=== PATIENT | female | born 1965 | race Native Hawaiian/Other Pacific Islander ===

== ENCOUNTER → 2016-12-29 | Outpatient (CLI) | payer MEDICARE ==
--- NOTE | 2016-12-30 07:48 | MR ---
EXAMINATION TYPE: MR lumbar spine wo con DATE OF EXAM: 12/29/2016 1:05 PM COMPARISON: 03/12/2014 HISTORY: 51-year-old female with low back pain TECHNIQUE: Multiplanar, multisequence images of the lumbar spine were acquired. FINDINGS: Gentle dextroconvex curvature of the lumbar spine is not as pronounced as on prior study and may in p art be positional. There is a component of mild congenital spinal canal narrowing in the mid to lower lumbar spine with AP canal dimension 1.3 cm. Vertebral body heights are preserved and alignment is maintained. Conus medullaris is normal. Mild desiccation of the L4-L5 and L5-S1 intervertebral discs. No suspicious bone marrow replacement. Better seen on the current exam is ligamentum flavum thickening and minimal bulging disc at T11-T12 c ontributing to mild narrowing of the spinal canal likely related abutment of both the dorsal and vent ral cord. At T12-L1, no spinal canal or neuroforaminal stenosis. At L1-L2, no spinal canal or neuroforaminal stenosis. At L2-L3, no spinal canal and neuroforaminal stenosis. At L3-L4, no spinal canal or neuroforaminal stenosis. At L4-L5, mild diffuse bulging disc is redemonstrated. There is ligamentum flavum thickening and face t degenerative change. There is similar accentuation of the mild spinal canal stenosis with similar m ild bilateral neuroforaminal stenosis. At L5-S1, there is diffuse disc bulge with small posterior annular fissure redemonstrated, relatively similar prior with prominent epidural fat and facet degenerative change. Disc material closely appro aches the traversing right S1 nerve root, similar to prior exam. No spinal canal stenosis. No prevertebral or paravertebral soft tissue abnormality seen. IMPRESSION: 1. 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 The mild spinal canal stenosis i s accentuated at L4-L5 due to diffuse disc bulging, facet arthropathy, and prominent dorsal epidural fat. Mild bilateral neuroforaminal stenoses at this level are also unchanged. 2. At L5-S1, there is bulging disc with small posterior annular fissure. Disc material closely appro aches the traversing right S1 nerve root here, similar to prior. 3. Better seen on the current study is marked ligamentum flavum thickening at T11-T12 and bulging dis c. This mildly narrows the spinal canal and probably abuts both the dorsal and ventral cord. 4. A dextroconvex curvature of the lumbar spine is not as pronounced as on prior study and may in par t be positional.
== END | disposition home or self-care (01) ==
LOC: RADMRIMAIN 11:45
PROVIDERS: ATTEND Psychiatry & Neurology Neurology
DX: M48.06 Spinal stenosis, lumbar region (principal); M99.73 Connective tissue and disc stenosis of intervertebral foramina of lumbar region; M51.27 Other intervertebral disc displacement, lumbosacral region; M46.86 Other specified inflammatory spondylopathies, lumbar region
CPT/HCPCS: 72148

== ENCOUNTER → 2017-10-05 | Outpatient (CLI) | payer MEDICARE ==
--- NOTE | 2017-10-06 11:41 | MR ---
EXAMINATION TYPE: MR brain wo/w con DATE OF EXAM: 10/05/2017 COMPARISON: 03/12/2014 HISTORY: MS CONTRAST: Performed utilizing 8.5 mL intravenous Gadavist gadolinium contrast. TECHNIQUE: Multiplanar, multisequence imaging of the brain is performed on a 3.0 Lucina magnet. Demye linating disease protocol with additional Sagittal Flair sequence is performed. Study is performed wi thin 24 hours of arrival to the hospital. FINDINGS: T2 White Matter Lesions Present : Yes Approximate Number of Lesions: Multiple scattered, greater than 20 on each side. Locations Identified : Yes Size of Largest Lesion(s): 1. 0.9 x 0.7 x 0.7 cm. Location: Right frontal centrum semiovale semiovale. Sequence 501 Image 22 (a xial) and Sequence 601 Image 22 (sagittal). 2. 0.4 x 0.6 x 0.6 cm. Location: Left espino radiata Sequence 501 Image 19 (axial) and Sequence 601 Image 10 (sagittal). Enhancing Lesion(s) Present: No Change from Prior: Progressive number and size of lesions. Diffusion-weighted imaging is performed. No abnormal hyperintensity is present to suggest an acute i ntracranial infarct or acute ischemic change. Ventricles and sulci are appropriate for the patient age. There are no abnormal extra-axial fluid collections. The ventricular system and cisternal spaces are normal in size and appearance. The brain volume is age appropriate. The craniocervical junction abhishek ears within normal limits. The dural venous sinuses appear patent. No abnormal enhancement is present on post contrast images. . The visualized sinuses are clear. Visu alized orbits are unremarkable. IMPRESSION: 1. Increasing number and size of white matter changes can be compatible with progressive multiple sc lerosis.
== END | disposition home or self-care (01) ==
LOC: RADMRIMAIN 12:53
PROVIDERS: ATTEND Psychiatry & Neurology Neurology
DX: R90.82 White matter disease, unspecified (principal)
CPT/HCPCS: 70553; A9581

== ENCOUNTER → 2017-11-11 | Outpatient (CLI) | payer MEDICARE ==
[2017-11-11 14:33] LABS: Total Protein,CSF 57 mg/dL (12-60)
[2017-11-11 15:24] LABS: Appearance,CSF Clear; CSF Tube Number 4; Nucleated Cells, CSF 0 u/L (0-5); Red Blood Cell,CSF 0 u/L (0-10)
[2017-11-13 13:30] LABS: IgG - CSF 3.4 mg/dL (0.0 - 3.4); IgG/Albumin Index (CSF) 0.52 (0.00 - 0.77)
== END | disposition home or self-care (01) ==
LOC: LABWHC1 10:15
PROVIDERS: ATTEND Nurse Practitioner Acute Care
DX: R90.82 White matter disease, unspecified (principal)
CPT/HCPCS: 36415; 82040; 82042; 82784; 83873; 83916; 84157; 87476; 89050

== ENCOUNTER 2018-01-24 21:06 | Emergency (ER) | payer MEDICARE ==
[2018-01-24] MEDS ORDERED: SODIUM CHLORIDE 0.9% 1,000 ML IV STA (22:52)
[2018-01-24] MEDS ORDERED: LIDOCAINE 1%-EPI 1:100,000 30 ML VIAL SQ STA (22:54)
--- NOTE | 2018-01-24 22:56 | ED ---
Syncope HPI - General Chief Complaint: Syncope Stated Complaint: Head injury Time Seen by Provider: 01/24/18 22:32 Source: family Mode of arrival: wheelchair Limitations: no limitations - Related Data Home Medications Medication Instructions Recorded Confirmed ALPRAZolam [Xanax] 1 - 1.5 mg PO BID PRN 01/24/18 01/24/18 Cholecalciferol [Vitamin D3] 1,000 unit PO DAILY 01/24/18 01/24/18 Gabapentin [Neurontin] 300 mg PO TID 01/24/18 01/24/18 HYDROcodone/APAP 7.5-325MG [[place] 1 tab PO TID PRN 01/24/18 01/24/18 7.5-325] Ibuprofen 800 mg PO QID PRN 01/24/18 01/24/18 Simvastatin [Zocor] 10 mg PO HS 01/24/18 01/24/18 Topiramate [Topamax] 50 mg PO BID 01/24/18 01/24/18 Allergies Allergy/AdvReac Type Severity Reaction Status Date / Time morphine Allergy Unknown Verified 01/24/18 22:03 Penicillins Allergy Unknown Verified 01/24/18 22:03 Review of Systems ROS Statement: Those systems with pertinent positive or pertinent negative responses have been documented in the HPI. Constitutional: Negative for chills, fatigue and fever. HENT: Negative for congestion. Respiratory: Negative for chest tightness, shortness of breath and wheezing. Negative for cough Cardiovascular: Negative for chest pain and palpitations. Gastrointestinal: Negative for abdominal pain. Negative for abdominal distention , diarrhea, nausea and vomiting. Genitourinary: Negative for dysuria. Musculoskeletal: Negative for back pain, neck pain and neck stiffness. Skin: Positive for scalpel Neurological: Negative for speech difficulty, weakness and positive for syncope in light-headedness. Psychiatric/Behavioral: Negative for agitation and confusion. The patient is not nervous/anxious. ROS Other: All systems not noted in ROS Statement are negative. Past Medical History Past Medical History: Cancer Additional Past Medical History / Comment(s): breast cancer History of Any Multi-Drug Resistant Organisms: None Reported Past Surgical History: Breast Surgery, Hysterectomy Past Psychological History: No Psychological Hx Reported Smoking Status: Current every day smoker Past Alcohol Use History: None Reported Past Drug Use History: None Reported General Exam - General Exam Comments Initial Comments: Constitutional: Pt is oriented to person, place, and time. Pt appears well- developed and well-nourished. No distress. HENT: Head: Normocephalic. 2 cm laceration on the occipital region of the scalp Eyes: EOM are normal. Pupils 3 mm bilaterally and reactive. Neck: Normal range of motion. Neck supple. Cardiovascular: Normal rate, regular rhythm, S1 normal, S2 normal and normal heart sounds. Exam reveals no gallop and no friction rub. No murmur heard. Pulmonary/Chest: Effort normal and breath sounds normal. No tachypnea and no bradypnea. No respiratory distress. No wheezes or rales noted. Abdominal: Soft. Bowel sounds are normal. Pt exhibits no shifting dullness, no distension, no pulsatile liver, no fluid wave, no abdominal bruit and no ascites. There is no tenderness. There is no rigidity, no rebound, no guarding, no tenderness at McBurney's point and negative Jesus's sign. Musculoskeletal: Normal range of motion. Neurological: Pt is alert and oriented to person, place, and time. No cranial nerve deficit. Skin: Skin is warm and dry. No rash noted. Pt is not diaphoretic. No erythema. No pallor. Psychiatric: Pt has a normal mood and affect. Pt behavior is normal. Thought content normal. Limitations: no limitations Course Vital Signs 01/24/18 21:10 Temperature 97.5 F L Pulse Rate 73 Respiratory 18 Rate Blood Pressure 129/67 O2 Sat by Pulse 96 Oximetry EKG Findings - EKG Comments: EKG Findings:: EKG showed sinus bradycardia with a rate of 55. DC interval 140 , QRS duration 84, QTC 420. There is no significant ST depressions or elevations. And nonspecific T-wave inversions were seen in the V1 Medical Decision Making - Medical Decision Making Labs showed that there is no signs of anemia and electrolytes were relatively within normal limits. EKG also showed sinus bradycardia with a rate of 55 that the patient's heart rate was measured abdominally at a rate of 60-[address] of the head was also performed and showed no evidence of acute pathology.It was explained that while there does not appear to be an emergent process, the etiology of the symptoms are still unclear but possibly related to bradycardia or other etiology and may need further workup as an outpatient if symptoms continue. However, because the patient was not expressing any symptoms and emergency department and the heart rate was not low enough to cause any symptoms , it was felt that the patient could be safely discharged home with very close follow-up with cardiology.Explained all labs and diagnostic test results and that we will discharge the patient home and patient is to follow up with PCP in 1-2 days and return to the ED if symptoms worsen. Pt is agreeable to plan. - Lab Data Result diagrams: 01/24/18 23:12 01/24/18 23:12 Lab Results 01/24/18 01/24/18 01/24/18 Range/Units 23:12 23:12 23:12 WBC 8.7 (3.8-10.6) k/uL RBC 4.98 (3.80-5.40) m/uL Hgb 13.3 (11.4-16.0) gm/dL Hct 40.1 (34.0-46.0) % MCV 80.5 (80.0-100.0) fL MCH 26.7 (25.0-35.0) pg MCHC 33.1 (31.0-37.0) g/dL RDW 14.0 (11.5-15.5) % Plt Count 218 (150-450) k/uL Neutrophils % 70 % Lymphocytes % 25 % Monocytes % 4 % Eosinophils % 1 % Basophils % 0 % Neutrophils # 6.1 (1.3-7.7) k/uL Lymphocytes # 2.1 (1.0-4.8) k/uL Monocytes # 0.3 (0-1.0) k/uL Eosinophils # 0.1 (0-0.7) k/uL Basophils # 0.0 (0-0.2) k/uL PT 10.2 (9.0-12.0) sec INR 1.0 (<1.2) APTT 23.8 (22.0-30.0) sec Sodium 146 H (137-145) mmol/L Potassium 3.7 (3.5-5.1) mmol/L Chloride 110 H (98-107) mmol/L Carbon Dioxide 22 (22-30) mmol/L Anion Gap 14 mmol/L BUN 11 (7-17) mg/dL Creatinine 0.70 (0.52-1.04) mg/dL Est GFR (CKD-EPI)AfAm >90 (>60 ml/min/1.73 sqM) Est GFR (CKD-EPI)NonAf >90 (>60 ml/min/1.73 sqM) Glucose 101 H (74-99) mg/dL Calcium 10.1 (8.4-10.2) mg/dL Magnesium 2.0 (1.6-2.3) mg/dL Total Bilirubin 0.2 (0.2-1.3) mg/dL AST 20 (14-36) U/L ALT 32 (9-52) U/L Alkaline Phosphatase 71 (38-126) U/L Troponin I (0.000-0.034) ng/mL Total Protein 6.6 (6.3-8.2) g/dL Albumin 4.1 (3.5-5.0) g/dL 01/24/18 Range/Units 23:12 WBC (3.8-10.6) k/uL RBC (3.80-5.40) m/uL Hgb (11.4-16.0) gm/dL Hct (34.0-46.0) % MCV (80.0-100.0) fL MCH (25.0-35.0) pg MCHC (31.0-37.0) g/dL RDW (11.5-15.5) % Plt Count (150-450) k/uL Neutrophils % % Lymphocytes % % Monocytes % % Eosinophils % % Basophils % % Neutrophils # (1.3-7.7) k/uL Lymphocytes # (1.0-4.8) k/uL Monocytes # (0-1.0) k/uL Eosinophils # (0-0.7) k/uL Basophils # (0-0.2) k/uL PT (9.0-12.0) sec INR (<1.2) APTT (22.0-30.0) sec Sodium (137-145) mmol/L Potassium (3.5-5.1) mmol/L Chloride (98-107) mmol/L Carbon Dioxide (22-30) mmol/L Anion Gap mmol/L BUN (7-17) mg/dL Creatinine (0.52-1.04) mg/dL Est GFR (CKD-EPI)AfAm (>60 ml/min/1.73 sqM) Est GFR (CKD-EPI)NonAf (>60 ml/min/1.73 sqM) Glucose (74-99) mg/dL Calcium (8.4-10.2) mg/dL Magnesium (1.6-2.3) mg/dL Total Bilirubin (0.2-1.3) mg/dL AST (14-36) U/L ALT (9-52) U/L Alkaline Phosphatase (38-126) U/L Troponin I <0.012 (0.000-0.034) ng/mL Total Protein (6.3-8.2) g/dL Albumin (3.5-5.0) g/dL Disposition Clinical Impression: Syncope Disposition: HOME SELF-CARE Condition: Good Instructions: Syncope (ED) Is patient prescribed a controlled substance at d/c from ED?: No Referrals: Wilner Vargas DO [Primary Care Provider] - 1-2 days Perry Linares MD [STAFF PHYSICIAN] - 1-2 days Time of Disposition: 00:57
[2018-01-24 23:22] LABS: Basophils % (A) 0 %; Eosinophils # (A) 0.1 k/uL (0-0.7); Eosinophils % (A) 1 %; HCT 40.1 % (34.0-46.0); HGB 13.3 gm/dL (11.4-16.0); Lymphocytes # (A) 2.1 k/uL (1.0-4.8); Lymphocytes % (A) 25 %; MCH 26.7 pg (25.0-35.0); MCHC 33.1 g/dL (31.0-37.0); MCV 80.5 fL (80.0-100.0); Mean Platelet Volume 7.6; Monocytes # (A) 0.3 k/uL (0-1.0); Monocytes % (A) 4 %; Neutrophils # (A) 6.1 k/uL (1.3-7.7); Neutrophils % (A) 70 %; Platelet Count 218 k/uL (150-450); RBC 4.98 m/uL (3.80-5.40); WBC 8.7 k/uL (3.8-10.6)
[2018-01-24 23:30] LABS: Partial Thromboplastin Time 23.8 sec (22.0-30.0); Prothrombin Time 10.2 sec (9.0-12.0)
[2018-01-24 23:31] LABS: ALT 32 U/L (9-52); AST 20 U/L (14-36); Albumin 4.1 g/dL (3.5-5.0); Alkaline Phosphatase 71 U/L (38-126); Blood Urea Nitrogen 11 mg/dL (7-17); Calcium 10.1 mg/dL (8.4-10.2); Carbon Dioxide 22 mmol/L (22-30); Glucose 101 mg/dL (74-99); Potassium 3.7 mmol/L (3.5-5.1); Sodium 146 mmol/L (137-145); Total Bilirubin 0.2 mg/dL (0.2-1.3); Total Protein 6.6 g/dL (6.3-8.2)
[2018-01-24 23:44] LABS: Anion Gap 14 mmol/L; Chloride 110 mmol/L (98-107)
--- NOTE | 2018-01-24 23:49 | CT ---
EXAMINATION TYPE: CT brain wo con DATE OF EXAM: 01/24/2018 COMPARISON: 11/08/2010 HISTORY: syncope CT DLP: 926.50 mGycm Automated exposure control for dose reduction was used. FINDINGS: The ventricles of normal size. There is no mass effect nor midline shift. There is no sign of intracr anial hemorrhage. There is left parietal scalp soft tissue swelling. IMPRESSION: LEFT PARIETAL SCALP SOFT TISSUE SWELLING. NO INTRACRANIAL ABNORMALITY.
[2018-01-25] MEDS ORDERED: HYDROcodone/APAP 5-325MG 1 EACH TAB PO STA (00:11)
[2018-01-25 00:52] VITALS: BP 105/53; PULSE 97; RESP 16; TEMP 98.6
--- NOTE | 2018-01-25 01:11 | ED ---
Medical Decision Making - Lab Data Result diagrams: 01/24/18 23:12 01/24/18 23:12 Lab Results 01/24/18 01/24/18 01/24/18 Range/Units 23:12 23:12 23:12 WBC 8.7 (3.8-10.6) k/uL RBC 4.98 (3.80-5.40) m/uL Hgb 13.3 (11.4-16.0) gm/dL Hct 40.1 (34.0-46.0) % MCV 80.5 (80.0-100.0) fL MCH 26.7 (25.0-35.0) pg MCHC 33.1 (31.0-37.0) g/dL RDW 14.0 (11.5-15.5) % Plt Count 218 (150-450) k/uL Neutrophils % 70 % Lymphocytes % 25 % Monocytes % 4 % Eosinophils % 1 % Basophils % 0 % Neutrophils # 6.1 (1.3-7.7) k/uL Lymphocytes # 2.1 (1.0-4.8) k/uL Monocytes # 0.3 (0-1.0) k/uL Eosinophils # 0.1 (0-0.7) k/uL Basophils # 0.0 (0-0.2) k/uL PT 10.2 (9.0-12.0) sec INR 1.0 (<1.2) APTT 23.8 (22.0-30.0) sec Sodium 146 H (137-145) mmol/L Potassium 3.7 (3.5-5.1) mmol/L Chloride 110 H (98-107) mmol/L Carbon Dioxide 22 (22-30) mmol/L Anion Gap 14 mmol/L BUN 11 (7-17) mg/dL Creatinine 0.70 (0.52-1.04) mg/dL Est GFR (CKD-EPI)AfAm >90 (>60 ml/min/1.73 sqM) Est GFR (CKD-EPI)NonAf >90 (>60 ml/min/1.73 sqM) Glucose 101 H (74-99) mg/dL Calcium 10.1 (8.4-10.2) mg/dL Magnesium 2.0 (1.6-2.3) mg/dL Total Bilirubin 0.2 (0.2-1.3) mg/dL AST 20 (14-36) U/L ALT 32 (9-52) U/L Alkaline Phosphatase 71 (38-126) U/L Troponin I (0.000-0.034) ng/mL Total Protein 6.6 (6.3-8.2) g/dL Albumin 4.1 (3.5-5.0) g/dL 01/24/18 Range/Units 23:12 WBC (3.8-10.6) k/uL RBC (3.80-5.40) m/uL Hgb (11.4-16.0) gm/dL Hct (34.0-46.0) % MCV (80.0-100.0) fL MCH (25.0-35.0) pg MCHC (31.0-37.0) g/dL RDW (11.5-15.5) % Plt Count (150-450) k/uL Neutrophils % % Lymphocytes % % Monocytes % % Eosinophils % % Basophils % % Neutrophils # (1.3-7.7) k/uL Lymphocytes # (1.0-4.8) k/uL Monocytes # (0-1.0) k/uL Eosinophils # (0-0.7) k/uL Basophils # (0-0.2) k/uL PT (9.0-12.0) sec INR (<1.2) APTT (22.0-30.0) sec Sodium (137-145) mmol/L Potassium (3.5-5.1) mmol/L Chloride (98-107) mmol/L Carbon Dioxide (22-30) mmol/L Anion Gap mmol/L BUN (7-17) mg/dL Creatinine (0.52-1.04) mg/dL Est GFR (CKD-EPI)AfAm (>60 ml/min/1.73 sqM) Est GFR (CKD-EPI)NonAf (>60 ml/min/1.73 sqM) Glucose (74-99) mg/dL Calcium (8.4-10.2) mg/dL Magnesium (1.6-2.3) mg/dL Total Bilirubin (0.2-1.3) mg/dL AST (14-36) U/L ALT (9-52) U/L Alkaline Phosphatase (38-126) U/L Troponin I <0.012 (0.000-0.034) ng/mL Total Protein (6.3-8.2) g/dL Albumin (3.5-5.0) g/dL Disposition Clinical Impression: Scalp laceration, Syncope Disposition: HOME SELF-CARE Condition: Good Instructions: Syncope (ED) Is patient prescribed a controlled substance at d/c from ED?: No Referrals: Wilner Vargas DO [Primary Care Provider] - 1-2 days Perry Linares MD [STAFF PHYSICIAN] - 1-2 days Time of Disposition: 01:10 Procedures - Laceration Laceration #1 Consent Obtained: verbal consent Time Out Performed: Yes Indication: laceration Site: scalp Size (cm): 2 Description: linear Depth: simple, single layer Sedation/Analgesia: none Anesthetic Used: lidocaine 1%, with epi Anesthesia Technique: local infiltration Amount (mls): 4 Pre-repair: wound explored, irrigated extensively Size of Sutures: other Number of Sutures: 6 Patient Tolerated Procedure: well Additional Comments: 6 bryan inserted
--- NOTE | 2018-01-25 01:15 | ED ---
Medical Decision Making - Medical Decision Making The following Is the HPI for the original emergency department note: Patient is a 52-year-old female presenting for loss of consciousness as well as head trauma. Sisters at bedside and states that she was upstairs when she became dizzy and passed out falling backwards striking her head on the door frame. She was unconscious for only a few seconds and when she came back to it , she was not confused. She denies any back pain, neck pain and states that her only discomfort is where she had a cut on her head from hitting the door frame. They state that this did happen roughly 15 years ago but didn't fill because of it. - Lab Data Result diagrams: 01/24/18 23:12 01/24/18 23:12 Lab Results 01/24/18 01/24/18 01/24/18 Range/Units 23:12 23:12 23:12 WBC 8.7 (3.8-10.6) k/uL RBC 4.98 (3.80-5.40) m/uL Hgb 13.3 (11.4-16.0) gm/dL Hct 40.1 (34.0-46.0) % MCV 80.5 (80.0-100.0) fL MCH 26.7 (25.0-35.0) pg MCHC 33.1 (31.0-37.0) g/dL RDW 14.0 (11.5-15.5) % Plt Count 218 (150-450) k/uL Neutrophils % 70 % Lymphocytes % 25 % Monocytes % 4 % Eosinophils % 1 % Basophils % 0 % Neutrophils # 6.1 (1.3-7.7) k/uL Lymphocytes # 2.1 (1.0-4.8) k/uL Monocytes # 0.3 (0-1.0) k/uL Eosinophils # 0.1 (0-0.7) k/uL Basophils # 0.0 (0-0.2) k/uL PT 10.2 (9.0-12.0) sec INR 1.0 (<1.2) APTT 23.8 (22.0-30.0) sec Sodium 146 H (137-145) mmol/L Potassium 3.7 (3.5-5.1) mmol/L Chloride 110 H (98-107) mmol/L Carbon Dioxide 22 (22-30) mmol/L Anion Gap 14 mmol/L BUN 11 (7-17) mg/dL Creatinine 0.70 (0.52-1.04) mg/dL Est GFR (CKD-EPI)AfAm >90 (>60 ml/min/1.73 sqM) Est GFR (CKD-EPI)NonAf >90 (>60 ml/min/1.73 sqM) Glucose 101 H (74-99) mg/dL Calcium 10.1 (8.4-10.2) mg/dL Magnesium 2.0 (1.6-2.3) mg/dL Total Bilirubin 0.2 (0.2-1.3) mg/dL AST 20 (14-36) U/L ALT 32 (9-52) U/L Alkaline Phosphatase 71 (38-126) U/L Troponin I (0.000-0.034) ng/mL Total Protein 6.6 (6.3-8.2) g/dL Albumin 4.1 (3.5-5.0) g/dL 01/24/18 Range/Units 23:12 WBC (3.8-10.6) k/uL RBC (3.80-5.40) m/uL Hgb (11.4-16.0) gm/dL Hct (34.0-46.0) % MCV (80.0-100.0) fL MCH (25.0-35.0) pg MCHC (31.0-37.0) g/dL RDW (11.5-15.5) % Plt Count (150-450) k/uL Neutrophils % % Lymphocytes % % Monocytes % % Eosinophils % % Basophils % % Neutrophils # (1.3-7.7) k/uL Lymphocytes # (1.0-4.8) k/uL Monocytes # (0-1.0) k/uL Eosinophils # (0-0.7) k/uL Basophils # (0-0.2) k/uL PT (9.0-12.0) sec INR (<1.2) APTT (22.0-30.0) sec Sodium (137-145) mmol/L Potassium (3.5-5.1) mmol/L Chloride (98-107) mmol/L Carbon Dioxide (22-30) mmol/L Anion Gap mmol/L BUN (7-17) mg/dL Creatinine (0.52-1.04) mg/dL Est GFR (CKD-EPI)AfAm (>60 ml/min/1.73 sqM) Est GFR (CKD-EPI)NonAf (>60 ml/min/1.73 sqM) Glucose (74-99) mg/dL Calcium (8.4-10.2) mg/dL Magnesium (1.6-2.3) mg/dL Total Bilirubin (0.2-1.3) mg/dL AST (14-36) U/L ALT (9-52) U/L Alkaline Phosphatase (38-126) U/L Troponin I <0.012 (0.000-0.034) ng/mL Total Protein (6.3-8.2) g/dL Albumin (3.5-5.0) g/dL Disposition Clinical Impression: Scalp laceration, Syncope Disposition: HOME SELF-CARE Condition: Good Instructions: Syncope (ED) Is patient prescribed a controlled substance at d/c from ED?: No Referrals: Wilner Vargas DO [Primary Care Provider] - 1-2 days Perry Linares MD [STAFF PHYSICIAN] - 1-2 days
== END 2018-01-25 01:04 | disposition home or self-care (01) ==
LOC: EC 21:06
DX: S01.01XA Laceration without foreign body of scalp, initial encounter (principal); R55 Syncope and collapse; R00.1 Bradycardia, unspecified; F17.200 Nicotine dependence, unspecified, uncomplicated; Z79.899 Other long term (current) drug therapy; Z88.0 Allergy status to penicillin; Z88.5 Allergy status to narcotic agent; Z85.3 Personal history of malignant neoplasm of breast; Z98.890 Other specified postprocedural states; W01.198A Fall on same level from slipping, tripping and stumbling with subsequent striking against other object, initial encounter; Y93.89 Activity, other specified; Y92.008 Other place in unspecified non-institutional (private) residence as the place of occurrence of the external cause
CPT/HCPCS: 12001; 36415; 70450; 80053; 83735; 84484; 85025; 85610; 85730; 93005; 96360; 96361; 99284

== ENCOUNTER → 2018-10-27 | Outpatient (CLI) | payer MEDICARE ==
--- NOTE | 2018-10-29 09:36 | MM ---
Reason for exam: screening (asymptomatic). Last mammogram was performed 6 years and 4 months ago. History: Patient is postmenopausal, has history of breast cancer at age 39, and is nulliparous. Silicone gel implant in the right breast, 2006. Reduction of the left breast, 2006. Excisional biopsy of the right breast, March 22, 2006. Mastectomy of the right breast, 2005. Benign excisional biopsy of the right breast, May 25, 2004. Physical Findings: A clinical breast exam by your physician is recommended on an annual basis and results should be correlated with mammographic findings. MG Screen Liz Unilateral W/Cad Bilateral CC and MLO view(s) were taken. Prior study comparison: July 07, 2012, left diagnostic mammogram w/CAD. April 27, 2011, left diagnostic mammogram w/CAD. The breast tissue is heterogeneously dense. This may lower the sensitivity of mammography. A couple superior asymmetric densities left breast are more defined but may represent summation shadow. Further evaluation recommended. ASSESSMENT: Incomplete: need additional imaging evaluation, BI-RAD 0 RECOMMENDATION: Special view mammogram of the left breast. (3D) If lesion persists on supplemental views, image directed ultrasound is recommended. [facility] will attempt to contact patient to return for supplemental views and ultrasound if indicated.
== END | disposition home or self-care (01) ==
LOC: RADMAMWWP 15:27
PROVIDERS: ATTEND Family Medicine
DX: Z12.31 Encounter for screening mammogram for malignant neoplasm of breast (principal)
CPT/HCPCS: 77067

== ENCOUNTER → 2018-10-31 | Outpatient (CLI) | payer MEDICARE ==
--- NOTE | 2018-10-31 13:48 | MM ---
Reason for exam: additional evaluation requested from abnormal screening. Last mammogram was performed less than 1 month ago. History: Patient is postmenopausal, has history of breast cancer at age 39, and is nulliparous. Silicone gel implant in the right breast, 2006. Reduction of the left breast, 2006. Excisional biopsy of the right breast, March 22, 2006. Mastectomy of the right breast, 2005. Benign excisional biopsy of the right breast, May 25, 2004. Physical Findings: Nurse did not find any significant physical abnormalities on exam. MG Work Up Mamm w CAD LT ML and spot compression MLO view(s) were taken of the left breast. Prior study comparison: October 27, 2018, bilateral MG screen khloe unilateral w/cad. July 07, 2012, left diagnostic mammogram w/CAD. The breast tissue is heterogeneously dense. This may lower the sensitivity of mammography. There is no discrete abnormality including area of concern on compression. No significant new findings when compared with previous films. These results were verbally communicated with the patient and result sheet given to the patient on 10/31/18. ASSESSMENT: Probably benign, BI-RAD 3 RECOMMENDATION: Follow-up diagnostic mammogram of the left breast in 6 months.
== END | disposition home or self-care (01) ==
LOC: RADMAMWWP 12:44
PROVIDERS: ATTEND Family Medicine
DX: R92.8 Other abnormal and inconclusive findings on diagnostic imaging of breast (principal)
CPT/HCPCS: 77065

== ENCOUNTER → 2019-05-05 | Outpatient (CLI) | payer MEDICARE ==
--- NOTE | 2019-05-05 15:00 | MM ---
Reason for exam: follow-up at short interval from prior study. Last mammogram was performed 6 months ago. History: Patient is postmenopausal, has history of breast cancer at age 39, and is nulliparous. Silicone gel implant in the right breast, 2006. Reduction of the left breast, 2006. Excisional biopsy of the right breast, March 22, 2006. Mastectomy of the right breast, 2005. Benign excisional biopsy of the right breast, May 25, 2004. Physical Findings: Nurse did not find any significant physical abnormalities on exam. MG Diagnostic Mammo LT w CAD CC, MLO, LM, spot compression MLO, and spot compression CC view(s) were taken of the left breast. Prior study comparison: October 31, 2018, left breast MG work up mamm w CAD LT. October 27, 2018, bilateral MG screen khloe unilateral w/cad. The breast tissue is heterogeneously dense. This may lower the sensitivity of mammography. Left upper outer quadrant focal asymmetry appears new and superior middle depth asymmetry persists from the prior. Both persist on additional views. These results were verbally communicated with the patient and result sheet given to the patient on 05/05/19. ASSESSMENT: Incomplete: need additional imaging evaluation, BI-RAD 0 RECOMMENDATION: Ultrasound of the left breast. (upper outer quadrant)
--- NOTE | 2019-05-05 15:03 | USB ---
Reason for exam: additional evaluation requested from abnormal screening. History: Patient is postmenopausal, has history of breast cancer at age 39, and is nulliparous. Silicone gel implant in the right breast, 2007. Reduction of the left breast, 2006. Excisional biopsy of the right breast, March 22, 2006. Mastectomy of the right breast, 2005. Benign excisional biopsy of the right breast, May 25, 2004. US Breast Limited LT Left limited breast ultrasound including focal area of concern, retroareolar and axilla demonstrates a 0.5 x 0.6 x 0.7cm taller than wide, irregular lesion at 2 o'clock suspicious, correlates with mammographic finding, biopsy recommended, a 1.4 x 0.9 x 0.5cm questionable lymph node at 2 o'clock and a 1.4 x 1.0 x 1.1cm larger node at the axilla, biopsy recommended, cortical thickening. Dense tissue corresponds to second mammographic asymmetry. These results were verbally communicated with the patient and result sheet given to the patient on 05/05/19. ASSESSMENT: Suspicious, BI-RAD 4 RECOMMENDATION: Ultrasound core biopsy of the left breast. (x 2) Called Dr. Vargas with mammographic findings and has scheduled an appointment for the patient for 05/15/19 at 12:[address] Jackson. Biopsy scheduled for 05/18/19 at 8:00. PRELIMINARY REPORT CALLED AND FAXED TO DR. JACKSON ON 05/05/19.
== END | disposition home or self-care (01) ==
LOC: RADMAMWWP 12:49
PROVIDERS: ATTEND Family Medicine
DX: R92.8 Other abnormal and inconclusive findings on diagnostic imaging of breast (principal)
CPT/HCPCS: 77065

== ENCOUNTER → 2019-05-15 | Outpatient (CLI) | payer MEDICARE ==
[2019-05-15 12:28] VITALS: BP 106/73; PULSE 57; RESP 18; TEMP 98.7; BMI 30.7
--- NOTE | 2019-05-15 13:06 | P.GSHP ---
History of Present Illness H&P Date: 05/15/19 Chief Complaint: Abnormal mammogram and ultrasound This is a 53-year-old [place] female who had a left breast mammogram performed in October 2018. She is status post right mastectomy in 2005. On the mammogram there were some superior densities in the left breast noted for which special views of the left breast were recommended. Special views of the left breast were performed on 10/31/2018 and at this time it was felt to be probably benign and follow-up diagnostic mammogram of the left breast in 6 months was recommended. This was performed on 9318. This revealed 2 areas of concern in the upper outer quadrant and an ultrasound was recommended. Ultrasound revealed a 0.5 x 0.7 tolerated and wide irregular lesion at 2:00 which was considered suspicious and biopsy was recommended. A 1.4 x 0.5 questionable lymph node was noted at 2:00 and 1.4 x 1 cm larger node at the axilla for which biopsy was recommended this had cortical thickening. The patient herself does not feel anything of concern in her breast. The patient denies any trauma to the breast. She denies any nipple discharge skin changes or pain in the breast. She has not had any recent infection in the breast. Patient is status post right breast mastectomy in 2005 with the silicone gel implant for reconstruction. The patient had both chemo and radiation therapy . She also had a reduction of the left breast. Her treatment was at [facility]. The patient did not have genetic testing. Family History: Mother: Stomach cancer Father: Tonsillar cancer Sister: Kidney cancer Patient: Personal history of right breast cancer Hormonal History: menarche: 9 G0 menopause: hysterectomy for a fibroid, took ovaries, about 33 BCP: none hormones: none Past surgical history: 1. Hysterectomy and bilateral oophorectomy 2. right breast cancer at 39,had mastectomy and axillary node dissection Past medical history: 1. Fibromyalgia 2. depression 3. Arthritis/back pain 4. migrains Social History: smoke: weekly alcohol: none drugs: none - Constitutional Constitutional: Reports sweats - EENT Eyes: denies blurred vision, denies pain Ears: deny: decreased hearing, tinnitus Ears, nose, mouth and throat: Reports headache, Denies sore throat - Breasts Breasts: bilateral: as per HPI - Cardiovascular Cardiovascular: Denies chest pain, Denies shortness of breath - Respiratory Respiratory: Denies cough, Denies 7 - Gastrointestinal Gastrointestinal: Denies abdominal pain, Denies diarrhea, Denies nausea, Denies vomiting - Genitourinary (Female) Genitourinary: Denies dysuria, Denies hematuria - Menstruation Menstruation: Reports post hysterectomy - Musculoskeletal Comment: arthritis, fibromyalgia, degenerative disc disease - Integumentary Integumentary: Denies pruritus, Denies rash - Neurological Neurological: Denies numbness, Denies weakness - Psychiatric Psychiatric: Reports depression - Endocrine Comment: Borderline diabetic Endocrine: Reports fatigue - Hematologic/Lymphatic Comment: none - Allergic/Immunologic Allergic/Immunologic: Reports as per HPI, Reports seasonal allergies Past Medical History Past Medical History: Cancer, Fibromyalgia Additional Past Medical History / Comment(s): breast cancer 2006 History of Any Multi-Drug Resistant Organisms: None Reported Past Surgical History: Breast Surgery, Hysterectomy Additional Past Surgical History / Comment(s): mastectomy right breast 2005. chemotherapy/radation. Past Anesthesia/Blood Transfusion Reactions: No Reported Reaction Past Psychological History: Anxiety Smoking Status: Current some day smoker Past Alcohol Use History: None Reported Past Drug Use History: None Reported Medications and Allergies Home Medications Medication Instructions Recorded Confirmed Type ALPRAZolam [Xanax] 1 - 1.5 mg PO BID PRN 01/24/18 05/15/19 History Cholecalciferol [Vitamin D3] 1,000 unit PO DAILY 01/24/18 05/15/19 History Gabapentin [Neurontin] 300 mg PO TID 01/24/18 05/15/19 History HYDROcodone/APAP 7.5-325MG [[place] 1 tab PO TID PRN 01/24/18 05/15/19 History 7.5-325] Ibuprofen 800 mg PO QID PRN 01/24/18 05/15/19 History Simvastatin [Zocor] 10 mg PO HS 01/24/18 05/15/19 History Topiramate [Topamax] 50 mg PO BID 01/24/18 05/15/19 History Sertraline HCl [Zoloft] 150 mg PO DAILY 05/08/19 05/15/19 History Allergies Allergy/AdvReac Type Severity Reaction Status Date / Time morphine Allergy Unknown Verified 05/15/19 12:28 Penicillins Allergy Unknown Verified 05/15/19 12:28 Surgical - Exam Vital Signs Temp Pulse Resp BP Pulse Ox 98.7 F 57 L 18 106/73 98 05/15/19 12:26 05/15/19 12:26 05/15/19 12:26 05/15/19 12:26 05/15/19 12:26 BMI 30.7 - General well developed, well nourished, no distress - Eyes normal ocular movement - ENT no hearing loss, no congestion - Neck no masses, trachea midline - Respiratory normal respiratory effort, clear to auscultation - Cardiovascular Rhythm: regular Heart Sounds: normal: S1, S2 - Abdomen Abdomen: soft, non tender, no guarding, no rigid, no rebound - Integumentary normal turgor - Neurologic no disoriented, no combative - Musculoskeletal normal gait - Psychiatric oriented to time, oriented to person, oriented to place, speech is normal, memory intact Breast examination: Right breast: Patient status post mastectomy with reconstruction via implant Right axilla: No adenopathy of concern no evidence of recurrent disease Left breast: Patient status post reduction of left breast multiple positional exam reveals dense fibroglandular tissue but no discrete masses noted Left axilla: No adenopathy of concern Assessment and Plan Assessment: Impression: 1. Fibromyalgia 2. depression 3. Arthritis/back pain 4. migrains 5. Patient personal history of right breast cancer 6. Abnormal mammogram 7. Abnormal ultrasound 8. Left breast reduction 9. Family history of cancer Plan: 1. Consider genetic testing 2. Left breast core biopsy and left axilla core biopsy 3. Follow-up after core biopsy results available 4. Medical management of medical conditions Cc: Dr. Vargas
== END | disposition home or self-care (01) ==
LOC: WWCWWP 11:40
PROVIDERS: ATTEND Surgery
DX: Z53.9 Procedure and treatment not carried out, unspecified reason (principal)

== ENCOUNTER → 2019-05-18 | Day surgery (SDC) | payer MEDICARE ==
[2019-05-18 07:32] VITALS: RESP 16; BMI 30.7
[2019-05-18 09:34] VITALS: BP 93/56; PULSE 64; TEMP 97.6
--- NOTE | 2019-05-18 09:55 | USB ---
EXAMINATION TYPE: US biopsy breast VAD LT, US biopsy breast add'l VAD LT, Postprocedure MG diagnostic mammo LT wo CAD DATE OF EXAM: 05/18/2019 CLINICAL HISTORY: 53-year-old female with personal history of right breast cancer. New left breast abnormality. R92.8 Abnormal Mammogram. TECHNIQUE: Ultrasound guided core biopsy of left breast, 2 sites. COMPARISON: 10/27/2018, 10/31/2018, and 11/19/2018 FINDINGS: The procedure of ultrasound guided core biopsy was explained to the patient. Benefits, alternatives, and risks were discussed. An informed consent was then obtained. The patient was placed in supine positioning for imaging and for the procedure. The overlying skin was prepped and draped in usual sterile fashion. SITE 1, 2:00 LESION: Lidocaine was used as anesthetic into the skin and subcutaneous tissue up to area of concern in the 2:00 left breast. Under ultrasound guidance, a 13-gauge vacuum-assisted mammotome Elite biopsy gun device was used to obtain 4 core samples. Following this, a ribbon clip was left in lesion. SITE 2, AXILLARY NODE: Lidocaine was used as anesthetic into the skin followed by lidocaine/epinephrine mixture into the subcutaneous tissue up to area of concern in the left axilla breast. Under ultrasound guidance, a 13-gauge vacuum-assisted mammotome Elite biopsy gun device was used to obtain 5 core samples. Following this, a hydromark clip was left in lesion. The patient tolerated the procedure well without any immediate complication. The patient was kept in the radiology department for short stay after the procedure and then discharged home in stable condition. Post procedure mammogram shows ribbon clip at the 2:00 position. The hydromark clip placed IMPRESSION: 1. Successful, uncomplicated 2 site ultrasound guided core biopsy of the suspicious area in the 2:00 left breast and thickened left axillary lymph node. Full pathology results to follow. Pathology Results: Benign A. LEFT BREAST, 2:00, ULTRASOUND GUIDED CORE BIOPSY: Fibrocystic changes including dense stromal fibrosis and adenosis. Negative for malignancy. B. LEFT AXILLA, CORE BIOPSY: Fragments of benign reactive lymph node. Recommendation Follow up ultrasound of the left breast in 6 months. ARACELIS
== END ==
LOC: RADUSWWP 07:04
PROVIDERS: ATTEND Surgery
DX: N60.12 Diffuse cystic mastopathy of left breast (principal); N60.22 Fibroadenosis of left breast; R92.8 Other abnormal and inconclusive findings on diagnostic imaging of breast; Z88.5 Allergy status to narcotic agent; Z88.0 Allergy status to penicillin
CPT/HCPCS: 19083; 38505; 88305; 77065; A4648; J2001; 19084

== ENCOUNTER → 2019-05-28 | Outpatient (CLI) | payer MEDICARE ==
[2019-05-28 09:05] VITALS: PULSE 52; RESP 18; TEMP 98; BMI 30.9
--- NOTE | 2019-05-28 10:06 | P.PN ---
Subjective Progress Note Date: 05/28/19 Chief complaint: Biopsy results ultrasound core biopsy/left upper arm pain/discordant results This is a 53-year-old I[place]ian female who had a left breast mammogram performed in October 2018. She is status post right mastectomy in 2005. On the mammogram there were some superior densities in the left breast noted for which special views of the left breast were recommended. Special views of the left breast were performed on 10/31/2018 and at this time it was felt to be probably benign and follow-up diagnostic mammogram of the left breast in 6 months was recommended. This was performed on 9318. This revealed 2 areas of concern in the upper outer quadrant and an ultrasound was recommended. Ultrasound revealed a 0.5 x 0.7 tolerated and wide irregular lesion at 2:00 which was considered suspicious and biopsy was recommended. A 1.4 x 0.5 questionable lymph node was noted at 2:00 and 1.4 x 1 cm larger node at the axilla for which biopsy was recommended this had cortical thickening. The pathology from the ultrasound core biopsy revealed only fibrocystic changes including dense stromal fibrosis and adenosis, negative for malignancy. The left axillary core biopsy revealed fragments of benign reactive lymph node. The radiographs were reviewed with Dr. Galarza from radiology it was felt that the findings on the ultrasound core biopsy were discordant and that she should undergo a needle local and excisional biopsy of the lesion in the left breast. Additionally there was concern that a lymph node other than the suspicious one had been biopsied and depending on the results from the ultrasound-guided biopsy of the breast this node may be necessary to be further biopsied as well. The patient herself does not feel anything of concern in her breast. The patient denies any trauma to the breast. She denies any nipple discharge skin changes or pain in the breast. She has not had any recent infection in the breast. The patient states since her biopsy she has some soreness under her left arm extending into the upper arm. She has not had any fever or chills. The pain in her arm is worse with movement. Patient is status post right breast mastectomy in 2005 with the silicone gel implant for reconstruction. The patient had both chemo and radiation therapy . She also had a reduction of the left breast. Her treatment was at [facility]. The patient did not have genetic testing. Family History: Mother: Stomach cancer Father: Tonsillar cancer Sister: Kidney cancer Patient: Personal history of right breast cancer Hormonal History: menarche: 9 G0 menopause: hysterectomy for a fibroid, took ovaries, about 33 BCP: none hormones: none Past surgical history: 1. Hysterectomy and bilateral oophorectomy 2. right breast cancer at 39,had mastectomy and axillary node dissection Past medical history: 1. Fibromyalgia 2. depression 3. Arthritis/back pain 4. migrains Social History: smoke: weekly alcohol: none drugs: none - Constitutional Constitutional: Reports sweats - EENT Eyes: denies blurred vision, denies pain Ears: deny: decreased hearing, tinnitus Ears, nose, mouth and throat: Reports headache, Denies sore throat - Breasts Breasts: bilateral: as per HPI - Cardiovascular Cardiovascular: Denies chest pain, Denies shortness of breath - Respiratory Respiratory: Denies cough, Denies 7 - Gastrointestinal Gastrointestinal: Denies abdominal pain, Denies diarrhea, Denies nausea, Denies vomiting - Genitourinary (Female) Genitourinary: Denies dysuria, Denies hematuria - Menstruation Menstruation: Reports post hysterectomy - Musculoskeletal Comment: arthritis, fibromyalgia, degenerative disc disease - Integumentary Integumentary: Denies pruritus, Denies rash - Neurological Neurological: Denies numbness, Denies weakness - Psychiatric Psychiatric: Reports depression - Endocrine Comment: Borderline diabetic Endocrine: Reports fatigue - Hematologic/Lymphatic Comment: none - Allergic/Immunologic Allergic/Immunologic: Reports as per HPI, Reports seasonal allergies Past Medical History Past Medical History: Cancer, Fibromyalgia Additional Past Medical History / Comment(s): breast cancer 2006 History of Any Multi-Drug Resistant Organisms: None Reported Past Surgical History: Breast Surgery, Hysterectomy Additional Past Surgical History / Comment(s): mastectomy right breast 2005. chemotherapy/radation. Past Anesthesia/Blood Transfusion Reactions: No Reported Reaction Past Psychological History: Anxiety Smoking Status: Current some day smoker Past Alcohol Use History: None Reported Past Drug Use History: None Reported Medications and Allergies Home Medications Medication Instructions Recorded Confirmed Type ALPRAZolam [Xanax] 1 - 1.5 mg PO BID PRN 01/24/18 05/15/19 History Cholecalciferol [Vitamin D3] 1,000 unit PO DAILY 01/24/18 05/15/19 History Gabapentin [Neurontin] 300 mg PO TID 01/24/18 05/15/19 History HYDROcodone/APAP 7.5-325MG [[place] 1 tab PO TID PRN 01/24/18 05/15/19 History 7.5-325] Ibuprofen 800 mg PO QID PRN 01/24/18 05/15/19 History Simvastatin [Zocor] 10 mg PO HS 01/24/18 05/15/19 History Topiramate [Topamax] 50 mg PO BID 01/24/18 05/15/19 History Sertraline HCl [Zoloft] 150 mg PO DAILY 05/08/19 05/15/19 History Allergies Allergy/AdvReac Type Severity Reaction Status Date / Time morphine Allergy Unknown Verified 05/15/19 12:28 Penicillins Allergy Unknown Verified 05/15/19 12:28 Objective - Vital Signs Vital signs: Vital Signs Temp 98.0 F 05/28/19 09:03 Pulse 52 L 05/28/19 09:03 Resp 18 05/28/19 09:03 BP Pulse Ox 96 05/28/19 09:03 Intake & Output 05/27/19 05/28/19 05/28/19 18:59 06:59 18:59 Weight 87.09 kg - Exam BMI 31 - Constitutional General appearance: Present: obese - EENT Eyes: Present: EOMI ENT: Present: hearing grossly normal - Neck Neck: Present: normal ROM - Respiratory Respiratory: bilateral: CTA - Cardiovascular Rhythm: regular Heart sounds: normal: S1, S2 - Gastrointestinal General gastrointestinal: Present: soft - Integumentary Integumentary Comment(s): Ecchymosis in the left breast laterally where core biopsy was performed Mild ecchymosis left axilla were core biopsy was performed Integumentary: Present: normal turgor - Musculoskeletal Musculoskeletal: Present: gait normal - Psychiatric Psychiatric: Present: A&O x's 3, appropriate affect, intact judgment & insight - Additional findings Additional findings: Left breast examination: Left breast examination reveals mild ecchymosis where the core biopsy was performed, there is a small hematoma at the area of the biopsy, this circumareolar incision from prior mastopexy Left axilla: Patient noted to have mild ecchymosis near area of biopsy Assessment and Plan Assessment: Impression: 1. Fibromyalgia 2. Depression 3. Arthritis/back pain 4. Migraines 5. Personal history of right breast cancer 6. Abnormal mammogram 7. Abnormal ultrasound 8. Left breast reduction 9. Family history of cancer 10. Discordant ultrasound core biopsy of the left breast results were reviewed with the radiologist 11. Possible discordant axillary node biopsy 12. Left upper arm discomfort/most likely related to some mild ecchymosis from the left axillary core biopsy will follow this Plan: 1. Patient is considering genetic testing she is awaiting results of her biopsies 2. Left breast needle local excisional biopsy discordant biopsied lesion 3. Follow-up regarding axillary lymph node after needle local excisional biopsy 4. Medical management of medical conditions Risks and benefits of the procedure including bleeding and infection reaction to the anesthetic as well as the possibility of not obtaining lesion were discussed with the patient and her patient understands and she wishes to proceed. We have also considered her fibromyalgia, arthritis, and the fact that laying on the operating room table may cause some discomfort. She understands again and wishes to proceed. CC: Dr. Vargas
== END ==
LOC: WWCWWP 08:47
PROVIDERS: ATTEND Surgery
DX: Z53.9 Procedure and treatment not carried out, unspecified reason (principal)

== ENCOUNTER 2019-07-01 10:25 | Day surgery (SDC) | payer MEDICARE ==
[2019-06-26 11:11] VITALS: BMI 30.9
--- NOTE | 2019-06-30 17:45 | P.PN ---
Subjective Progress Note Date: 06/30/19 This is a 53-year-old [place] female who had a left breast mammogram performed in October 2018. She is status post right mastectomy in 2005. On the mammogram there were some superior densities in the left breast noted for which special views of the left breast were recommended. Special views of the left breast were performed on 10/31/2018 and at this time it was felt to be probably benign and follow-up diagnostic mammogram of the left breast in 6 months was recommended. This was performed on 9318. This revealed 2 areas of concern in the upper outer quadrant and an ultrasound was recommended. Ultrasound revealed a 0.5 x 0.7 taller than wide irregular lesion at 2:00 which was considered mundo picious and biopsy was recommended. A 1.4 x 0.5 questionable lymph node was noted at 2:00 and 1.4 x 1 cm larger node at the axilla for which biopsy was recommended this had cortical thickening. The patient herself does not feel anything of concern in her breast. The patient denies any trauma to the breast. She denies any nipple discharge skin changes or pain in the breast. She has not had any recent infection in the breast. Patient is status post right breast mastectomy in 2005 with the silicone gel implant for reconstruction. The patient had both chemo and radiation therapy . She also had a reduction of the left breast. Her treatment was at [facility]. The patient did not have genetic testing. The patient and [id number] underwent ultrasound-guided core biopsy of the left alvino ast at 2:00 which revealed fibrocystic changes negative for malignancy. Core biopsy of the lymph node revealed benign reactive lymph node. There is concern in the core biopsy results were discordant of the lesion in the breast and needle localization and open excisional biopsy was recommended. Family History: Mother: Stomach cancer Father: Tonsillar cancer Sister: Kidney cancer Patient: Personal history of right breast cancer Hormonal History: menarche: 9 G0 menopause: hysterectomy for a fibroid, took ovaries, about 33 BCP: none hormones: none Past surgical history: 1. Hysterectomy and bilateral oophorectomy 2. right breast cancer at 39,had mastectomy and axillary node dissection Past medical history: 1. Fibromyalgia 2. depression 3. Arthritis/back pain 4. migrains Social History: smoke: weekly alcohol: none drugs: none - Constitutional Constitutional: Reports sweats - EENT Eyes: denies blurred vision, denies pain Ears: deny: decreased hearing, tinnitus Ears, nose, mouth and throat: Reports headache, Denies sore throat - Breasts Breasts: bilateral: as per HPI - Cardiovascular Cardiovascular: Denies chest pain, Denies shortness of breath - Respiratory Respiratory: Denies cough, Denies 7 - Gastrointestinal Gastrointestinal: Denies abdominal pain, Denies diarrhea, Denies nausea, Denies vomiting - Genitourinary (Female) Genitourinary: Denies dysuria, Denies hematuria - Menstruation Menstruation: Reports post hysterectomy - Musculoskeletal Comment: arthritis, fibromyalgia, degenerative disc disease - Integumentary Integumentary: Denies pruritus, Denies rash - Neurological Neurological: Denies numbness, Denies weakness - Psychiatric Psychiatric: Reports depression - Endocrine Comment: Borderline diabetic Endocrine: Reports fatigue - Hematologic/Lymphatic Comment: none - Allergic/Immunologic Allergic/Immunologic: Reports as per HPI, Reports seasonal allergies Past Medical History Past Medical History: Cancer, Fibromyalgia Additional Past Medical History / Comment(s): breast cancer 2006 History of Any Multi-Drug Resistant Organisms: None Reported Past Surgical History: Breast Surgery, Hysterectomy Additional Past Surgical History / Comment(s): mastectomy right breast 2005. chemotherapy/radation. Past Anesthesia/Blood Transfusion Reactions: No Reported Reaction Past Psychological History: Anxiety Smoking Status: Current some day smoker Past Alcohol Use History: None Reported Past Drug Use History: None Reported Medications and Allergies Home Medications Medication Instructions Recorded Confirmed Type ALPRAZolam [Xanax] 1 - 1.5 mg PO BID PRN 01/24/18 05/15/19 History Cholecalciferol [Vitamin D3] 1,000 unit PO DAILY 01/24/18 05/15/19 History Gabapentin [Neurontin] 300 mg PO TID 01/24/18 05/15/19 History HYDROcodone/APAP 7.5-325MG [[place] 1 tab PO TID PRN 01/24/18 05/15/19 History 7.5-325] Ibuprofen 800 mg PO QID PRN 01/24/18 05/15/19 History Simvastatin [Zocor] 10 mg PO HS 01/24/18 05/15/19 History Topiramate [Topamax] 50 mg PO BID 01/24/18 05/15/19 History Sertraline HCl [Zoloft] 150 mg PO DAILY 05/08/19 05/15/19 History Allergies Allergy/AdvReac Type Severity Reaction Status Date / Time morphine Allergy Unknown Verified 05/15/19 12:28 Penicillins Allergy Unknown Verified 05/15/19 12:28 Objective - Exam BMI 31 - Constitutional General appearance: Present: average body habitus - EENT Eyes: Present: EOMI ENT: Present: hearing grossly normal - Neck Neck: Present: normal ROM - Respiratory Respiratory: bilateral: CTA - Cardiovascular Rhythm: regular Heart sounds: normal: S1, S2 - Gastrointestinal General gastrointestinal: Present: soft - Integumentary Integumentary: Present: normal turgor - Musculoskeletal Musculoskeletal: Present: gait normal - Psychiatric Psychiatric: Present: A&O x's 3, appropriate affect, intact judgment & insight - Additional findings Additional findings: Breast examination: Right breast: Status post mastectomy with reconstruction via implant Right axilla: No adenopathy of concern no evidence of recurrent disease Left breast: Status post reduction of left breast, multiple positional exam reveals dense fibroglandular tissue but no discrete mass Left axilla: No adenopathy of concern Assessment and Plan Assessment: Impression: 1. Fibromyalgia 2. Depression 3. Arthritis/back pain 4. Migraines 5. history of right breast cancer 6. Discordant ultrasound core biopsy of the left breast 7. Left breast reduction 8. Family history of cancer Plan: 1. Consider genetic testing 2. The localization and excision of the area of concern in the left breast 3. Medical management of medical conditions CC: Dr. Vargas
[~2019-07-01 10:25] MED LIST: DEXAMETHASONE SOD PHOSPHATE 10 MG/ML 1 ML VIAL IV ONE; HEPARIN SODIUM,PORCINE 5,000 UNIT/ML 1 ML VIAL SQ ONE; LACTATED RINGERS 1,000 ML IV SCH; LIDOCAINE 1% 20 ML VIAL (10MG/ML) FOR IV START INTRADERMA PRN; ONDANSETRON 4 MG/2 ML VIAL IVP ONE; SCOPOLAMINE 1.5MG/72HR PATCH TRANSDERM ONE
[2019-07-01] MEDS ORDERED: LIDOCAINE 1% 20 ML VIAL (10MG/ML) FOR IV START INTRADERMA ONE (12:07)
[2019-07-01] MEDS ORDERED: HEPARIN SODIUM,PORCINE 5,000 UNIT/ML 1 ML VIAL SQ ONE (14:19)
[2019-07-01] MEDS ORDERED: SUCCINYLCHOLINE CHLORIDE 100 MG/5 ML SYR IV ONE (14:41)
[2019-07-01] MEDS ORDERED: LIDOCAINE 1% INJ 10MG/ML (20 ML MDV) ONE (14:41)
[2019-07-01] MEDS ORDERED: fentaNYL (PF) 50 MCG/ML 2 ML AMP ONE (14:41)
[2019-07-01] MEDS ORDERED: MIDAZOLAM 2 MG/2 ML VIAL ONE (14:41)
[2019-07-01] MEDS ORDERED: PROPOFOL 10 MG/ML 20 ML VIAL IV ONE (14:41)
[2019-07-01] MEDS ORDERED: LIDOCAINE 1% INJ 10MG/ML (20 ML MDV) SQ ONE (15:09)
[2019-07-01] MEDS ORDERED: LACTATED RINGERS 1,000 ML IV ONE (15:40)
--- NOTE | 2019-07-01 15:43 | P.OP ---
Date of Procedure: 07/01/19 Preoperative Diagnosis: needle localization andExcisional biopsy of area of concern left breast Postoperative Diagnosis: same Procedure(s) Performed: Left breast needle localization and excisional biopsy Anesthesia: RUBÉNA Surgeon: Ling Jackson IV fluids (ml): 4 Urine output (ml): 500 Condition: stable Disposition: same day Indications for Procedure: core Biopsy discordant left breast Operative Findings: Fibrofatty breast tissue Description of Procedure: The patient was taken to the operating room following needle localization area of concern in the left breast. A periareolar incision was made. This was carried down to the shaft of the needle. Surrounding tissue was excised. The cavity was evaluated for hemostasis and irrigated. The specimen was painted for orientation. Radiograph of the specimen revealed the area of concern had been removed. The deep tissues of the cavity were closed using 3-0 Vicryl suture. Prior to this titanium clips were placed to magdalena the cavity. The skin was closed with 4-0 Vicryl suture. This is followed by a 4-0 Monocryl skin suture. The patient tolerated procedure in stable condition. All instrument and sponge counts were correct at the end of the case.
--- NOTE | 2019-07-01 15:44 | P.DS ---
Providers Attending physician: Ling Jackson Primary care physician: Wilner Vargas Plan - Discharge Summary Discharge Rx Participant: No New Discharge Prescriptions: No Action Topiramate [Topamax] 50 mg PO BID Simvastatin [Zocor] 10 mg PO HS Cholecalciferol [Vitamin D3] 1,000 unit PO QAM ALPRAZolam [Xanax] 1 - 1.5 mg PO BID PRN PRN Reason: Anxiety Ibuprofen 800 mg PO QID PRN PRN Reason: Pain HYDROcodone/APAP 7.5-325MG [[place] 7.5-325] 1 tab PO TID PRN PRN Reason: Pain Gabapentin [Neurontin] 300 mg PO TID Sertraline HCl [Zoloft] 150 mg PO QAM Discharge Medication List ALPRAZolam [Xanax] 1 - 1.5 mg PO BID PRN 01/24/18 [History] Cholecalciferol [Vitamin D3] 1,000 unit PO QAM 01/24/18 [History] Gabapentin [Neurontin] 300 mg PO TID 01/24/18 [History] HYDROcodone/APAP 7.5-325MG [[place] 7.5-325] 1 tab PO TID PRN 01/24/18 [History] Ibuprofen 800 mg PO QID PRN 01/24/18 [History] Simvastatin [Zocor] 10 mg PO HS 01/24/18 [History] Topiramate [Topamax] 50 mg PO BID 01/24/18 [History] Sertraline HCl [Zoloft] 150 mg PO QAM 05/08/19 [History] Follow up Appointment(s)/Referral(s): Ling Jackson MD [STAFF PHYSICIAN] - 1 Week Activity/Diet/Wound Care/Special Instructions: Do not drive for 24 hours after discharge Patient may shower after 48 hours Wear bra at all times Discharge Disposition: HOME SELF-CARE
--- NOTE | 2019-07-01 15:46 | MM ---
EXAMINATION TYPE: MG pre op needle loc LT, MG surgical specimen LT DATE OF EXAM: 07/01/2019 COMPARISON: Left breast biopsy dated 05/18/2019 CLINICAL HISTORY: Discordant 2:00 left breast biopsy for which needle localization was requested TECHNIQUE: Needle localization with wire placement and surgical excision of area of concern in the left breast. FINDINGS: The procedure of needle localization with wire placement and than surgical excision was explained to the patient. Benefits, alternatives, and risks were discussed. An informed consent was then obtained. Preprocedural timeout was performed. The shortest pathway for procedure was chosen. Shortest pathway was lateral medial approach. The overlying skin was prepped and draped in usual sterile fashion. Lidocaine buffered with bicarbonate was used as anesthetic into the skin and subcutaneous tissue up to the level of area of concern. A 5 cm needle was used. It was placed via a lateral to medial approach under mammographic guidance. Subsequent 90 degrees mammogram show the needle to be in satisfactory position relative to the targeted area. At this point, wire was placed and the needle was withdrawn. The wire was fixed to patient's skin. Images were marked for surgeon. The patient tolerated the procedure well without any immediate complication. The patient was kept in the radiology department for short stay after the procedure and then taken to surgery for surgical excision. Targeted biopsy marker and wire are identified in specimen mammogram. The patient was kept in hospital for short stay after the procedure and then discharged home in stable condition. IMPRESSION: Successful, uncomplicated needle localization with wire placement and surgical excision of a left breast mass of the upper outer quadrant denoted by a ribbon-shaped biopsy marker, full pathology results to follow. Pathology Results: Benign LEFT BREAST, NEEDLE LOCALIZATION BIOPSY: Sclerotic breast parenchyma with focal duct hyperplasia (usual type) in a background of fibrocystic changes. Recommendation Follow up ultrasound of the left breast in 6 months. MTDD
[2019-07-01 16:10] VITALS: TEMP 97
[2019-07-01] MEDS: fentaNYL (PF) 50 MCG/ML 2 ML AMP IV PRN ×2 (16:11→16:35)
[2019-07-01] MEDS ORDERED: HYDROcodone/APAP 7.5-325MG 1 EACH TAB PO ONE (18:25)
[2019-07-01 19:53] VITALS: RESP 20
[2019-07-01 19:55] VITALS: PULSE 82
[2019-07-01 19:57] VITALS: BP 122/58
== END 2019-07-01 19:10 | disposition home or self-care (01) ==
LOC: OR 10:25
PROVIDERS: ATTEND Surgery
DX: N60.12 Diffuse cystic mastopathy of left breast (principal); E78.5 Hyperlipidemia, unspecified; M79.7 Fibromyalgia; F32.9 Major depressive disorder, single episode, unspecified; M19.90 Unspecified osteoarthritis, unspecified site; G43.909 Migraine, unspecified, not intractable, without status migrainosus; R73.03 Prediabetes; J30.2 Other seasonal allergic rhinitis; F41.9 Anxiety disorder, unspecified; Z88.5 Allergy status to narcotic agent; Z88.0 Allergy status to penicillin; Z79.899 Other long term (current) drug therapy; Z79.1 Long term (current) use of non-steroidal anti-inflammatories (NSAID); Z90.11 Acquired absence of right breast and nipple; Z92.3 Personal history of irradiation; Z92.21 Personal history of antineoplastic chemotherapy; Z90.710 Acquired absence of both cervix and uterus; Z90.722 Acquired absence of ovaries, bilateral; Z85.3 Personal history of malignant neoplasm of breast; Z80.0 Family history of malignant neoplasm of digestive organs; Z80.51 Family history of malignant neoplasm of kidney; Z80.8 Family history of malignant neoplasm of other organs or systems
CPT/HCPCS: 88307; 76098; 19281; 19125; J2250; J1644; J1100; J0690; J2405; J2001; J3010; J0330; J2704

== ENCOUNTER → 2019-07-09 | Outpatient (CLI) | payer MEDICARE ==
--- NOTE | 2019-07-09 16:29 | P.PN ---
Progress Note - Text Progress Note Date: 07/09/19 Chanel is a 53-year-old female status post Local excisional biopsy of a lesion in the left breast on [id number]. Pathology revealed a sclerotic breast parenchyma with focal ductal hyperplasia and fibrocystic changes. The patient has no complaints following her procedure. PE: Left breast: Incision Clean and dry no Evidence of infection Impression: 1. Benign needle local excisional biopsy left breast Plan: 1. Left breast mammogram in 6 months with physician exam at that time CC: Dr. Vargas
[2019-07-09 16:30] VITALS: BP 119/80; PULSE 63; RESP 18; TEMP 98.4; BMI 30.9
== END | disposition home or self-care (01) ==
LOC: WWCWWP 16:04
PROVIDERS: ATTEND Surgery
DX: Z53.9 Procedure and treatment not carried out, unspecified reason (principal)

== ENCOUNTER → 2020-02-16 | Outpatient (CLI) | payer MEDICARE ==
--- NOTE | 2020-02-16 11:42 | MM ---
Reason for exam: follow-up at short interval from prior study. Last mammogram was performed 9 months ago. History: Patient is postmenopausal, has history of breast cancer at age 39, and is nulliparous. Benign MG pre op needle loc LT of the left breast, July 01, 2019. Benign US biopsy breast VAD LT of the left breast, May 18, 2019. Benign US biopsy breast add'l VAD LT of the left breast, May 18, 2019. Silicone gel implant in the right breast, 2006. Reduction of the left breast, 2006. Excisional biopsy of the right breast, March 22, 2006. Mastectomy of the right breast, 2005. Benign excisional biopsy of the right breast, May 25, 2004. Physical Findings: Nurse did not find any significant physical abnormalities on exam. MG Diagnostic Mammo LT w CAD CC and MLO view(s) were taken of the left breast. Prior study comparison: May 18, 2019, left breast MG diagnostic mammo LT wo CAD. May 05, 2019, left breast MG diagnostic mammo LT w CAD. The breast tissue is heterogeneously dense. This may lower the sensitivity of mammography. Multiple clips in place. No suspicious calcifications or masses are seen. These results were verbally communicated with the patient and result sheet given to the patient on 02/16/20. ASSESSMENT: Benign, BI-RAD 2 RECOMMENDATION: Follow-up diagnostic mammogram of the left breast in 1 year.
== END | disposition home or self-care (01) ==
LOC: RADMAMWWP 10:51
PROVIDERS: ATTEND Surgery
DX: R92.8 Other abnormal and inconclusive findings on diagnostic imaging of breast (principal)
CPT/HCPCS: 77065

== ENCOUNTER → 2020-02-25 | Outpatient (CLI) | payer MEDICARE ==
[2020-02-25 11:57] VITALS: BP 127/83; PULSE 71; RESP 18; TEMP 98.5
--- NOTE | 2020-02-25 14:51 | P.PN ---
Subjective Progress Note Date: 02/25/20 Principal diagnosis: right breast cancer stage ?, about 15 years ago This is a 53-year-old [place] female who had a left breast mammogram performed in October 2018. She is status post right mastectomy in 2005. On the mammogram there were some superior densities in the left breast noted for which special views of the left breast were recommended. Special views of the left breast were performed on 10/31/2018 and at this time it was felt to be probably benign and follow-up diagnostic mammogram of the left breast in 6 months was recommended. This was performed on 9318. This revealed 2 areas of concern in the upper outer quadrant and an ultrasound was recommended. Ultrasound revealed a 0.5 x 0.7 tolerated and wide irregular lesion at 2:00 which was considered suspicious and biopsy was recommended. A 1.4 x 0.5 questionable lymph node was noted at 2:00 and 1.4 x 1 cm larger node at the axilla for which biopsy was recommended this had cortical thickening. The patient herself does not feel anything of concern in her breast. The patient denies any trauma to the breast. She denies any nipple discharge skin changes or pain in the breast. She has not had any recent infection in the breast. She underwent ultrasound core biopsy on 05/18/19 which were benign. She had open biopsy of the left breast lesion on 07-01-19, this was benign. She had a repeat left breast mammogram done on 02-16-20 which was benign BIRAD 2. Mammogram results reviewed Patient is status post right breast mastectomy in 2005 with the silicone gel implant for reconstruction. The patient had both chemo and radiation therapy . She did not have any hormonal therapy. She also had a reduction of the left breast. Her treatment was at [facility]. The patient did not have genetic testing. Family History: Mother: Stomach cancer Father: Tonsillar cancer Sister: Kidney cancer Patient: Personal history of right breast cancer Hormonal History: menarche: 9 G0 menopause: hysterectomy for a fibroid, took ovaries, about 33 BCP: none hormones: none Past surgical history: 1. Hysterectomy and bilateral oophorectomy 2. right breast cancer at 39,had mastectomy and axillary node dissection Past medical history: 1. Fibromyalgia 2. depression 3. Arthritis/back pain 4. migraine headaches Social History: smoke: weekly alcohol: none drugs: none - Constitutional Constitutional: Reports sweats - EENT Eyes: denies blurred vision, denies pain Ears: deny: decreased hearing, tinnitus Ears, nose, mouth and throat: Reports headache, Denies sore throat - Breasts Breasts: bilateral: as per HPI - Cardiovascular Cardiovascular: Denies chest pain, Denies shortness of breath - Respiratory Respiratory: Denies cough, - Gastrointestinal Gastrointestinal: Denies abdominal pain, Denies diarrhea, Denies nausea, Denies vomiting - Genitourinary (Female) Genitourinary: Denies dysuria, Denies hematuria - Menstruation Menstruation: Reports post hysterectomy - Musculoskeletal Comment: arthritis, fibromyalgia, degenerative disc disease - Integumentary Integumentary: Denies pruritus, Denies rash - Neurological Neurological: Denies numbness, Denies weakness - Psychiatric Psychiatric: Reports depression - Endocrine Comment: Borderline diabetic Endocrine: Reports fatigue - Hematologic/Lymphatic Comment: none - Allergic/Immunologic Allergic/Immunologic: Reports as per HPI, Reports seasonal allergies Past Medical History Past Medical History: Cancer, Fibromyalgia Additional Past Medical History / Comment(s): breast cancer 2006 History of Any Multi-Drug Resistant Organisms: None Reported Past Surgical History: Breast Surgery, Hysterectomy Additional Past Surgical History / Comment(s): mastectomy right breast 2005. chemotherapy/radation. Past Anesthesia/Blood Transfusion Reactions: No Reported Reaction Past Psychological History: Anxiety Smoking Status: Current some day smoker Past Alcohol Use History: None Reported Past Drug Use History: None Reported Objective - Vital Signs Vital signs: Vital Signs Temp 98.5 F 02/25/20 11:54 Pulse 71 02/25/20 11:54 Resp 18 02/25/20 11:54 BP 127/83 02/25/20 11:54 Pulse Ox 98 02/25/20 11:54 Intake & Output 02/24/20 02/25/20 02/25/20 18:59 06:59 18:59 Weight 87.543 kg - Exam BMI 31.2 - Constitutional General appearance: Present: obese - EENT Eyes: Present: EOMI ENT: Present: hearing grossly normal - Neck Neck: Present: normal ROM - Respiratory Respiratory: bilateral: CTA - Cardiovascular Rhythm: regular Heart sounds: normal: S1, S2 - Gastrointestinal General gastrointestinal: Present: normal bowel sounds, soft - Integumentary Integumentary: Present: normal turgor - Musculoskeletal Musculoskeletal: Present: gait normal - Psychiatric Psychiatric: Present: A&O x's 3, appropriate affect, intact judgment & insight - Additional findings Additional findings: Breast exam: BRA 38C inspection: nipples asymmetric secondary to a right mastectomy, and left reduction mammoplasty, well-healed scars from prior surgeries Palpation: Right chest wall no evidence of recurrent cancer, implant in place, large amount of redundant axillary tissue which is bothersome to the patient Right axilla: No adenopathy of concern Left breast: Multiple position exam no dominant masses or nodules of concern, prominent axillary breast tissue Left axilla: No adenopathy of concern Assessment and Plan Assessment: Impression: 1. Fibromyalgia 2. depression 3. Arthritis/back pain 4. migraine headaches 5. Status post right mastectomy question stage of right breast cancer 6. Reduction mammoplasty on the left breast 7. Redundant axillary tissue on the right 8. Prominent left breast axillary tissue Plan: 1. No evidence of recurrent cancer at this time 2. Patient would like to have redundant axillary tissue on the right removed and questionably remove the axillary tissue on the left 3. Obtain pathology results from previous mastectomy 4. Repeat left breast mammogram in physician exam in 1 year CC: Dr. Vargas encounter 20 minutes, > 50% of time in planning and counselling. Time with Patient: Less than 30
== END | disposition home or self-care (01) ==
LOC: WWCWWP 11:43
PROVIDERS: ATTEND Surgery
DX: Z53.9 Procedure and treatment not carried out, unspecified reason (principal)

== ENCOUNTER → 2022-05-23 | Outpatient (CLI) | payer MEDICARE | END | disposition home or self-care (01) | LOC: LABWHC1 14:01 | PROVIDERS: ATTEND Physician Assistant | DX: I49.9 Cardiac arrhythmia, unspecified (principal); R94.31 Abnormal electrocardiogram [ECG] [EKG] | CPT/HCPCS: 36415; 93005 ==

== ENCOUNTER → 2023-01-17 | Outpatient (CLI) | payer MEDICARE | END | disposition home or self-care (01) | LOC: LABWHC1 11:42 | PROVIDERS: ATTEND Physician Assistant | DX: I49.9 Cardiac arrhythmia, unspecified (principal); I21.4 Non-ST elevation (NSTEMI) myocardial infarction; R94.31 Abnormal electrocardiogram [ECG] [EKG] | CPT/HCPCS: 36415; 93005 ==

== ENCOUNTER → 2023-12-27 | Outpatient (CLI) | payer MEDICARE ==
--- NOTE | 2023-12-30 08:35 | MM ---
Reason for Exam: Screening (asymptomatic). Last mammogram was performed 3 year(s) and 10 month(s) ago. Patient History: Menarche at age 10. Patient has no children. Left ovary removed at age 38. Right ovary removed at age 38. Hysterectomy at age 38. Postmenopausal. Breast cancer, age 39. 2006, Reduction on the Left side. 2005, Mastectomy on the Right side. 03/22/2006, Excisional Biopsy on the Right side. 05/25/2004, Benign Excisional Biopsy on the right side. 07/01/2019, Benign Core Biopsy on the left side. 05/18/2019, Benign Core Biopsy on the left side. 05/18/2019, Benign Core Biopsy on the left side. 2006, Implant on the right side. Prior Study Comparison: 05/05/2019 Left Diagnostic Mammogram, [facility]. 05/18/2019 Left Diagnostic Mammogram, [facility]. 02/16/2020 Left Diagnostic Mammogram, [facility]. Tissue Density: Left: The breasts are heterogeneously dense, which may obscure small masses. Findings: Analyzed By CAD. Left breast surgical clip. Right breast: There is no suspicious group of microcalcifications or new suspicious mass. Left breast: There is no suspicious group of microcalcifications or new suspicious mass. Overall Assessment: Benign, BI-RAD 2 Management: Screening Mammogram of both breasts in [address] [facility] will attempt to contact patient to return for supplemental views and ultrasound if indicated. Patient should continue monthly self-breast exams. A clinical breast exam by your physician is recommended on an annual basis. This exam should not preclude additional follow-up of suspicious palpable abnormalities. Note on Rachel scores and lifetime risk: 1. A Rachel score greater than 3% is considered moderate risk. If this is the case, consider specialist referral to assess eligibility for a risk reducing agent. 2. If overall lifetime risk for the development of breast cancer is 20% or higher, the patient may qualify for future screening with alternating mammogram and breast MRI. Electronically signed and approved by: Bryant Aldana DO
== END | disposition home or self-care (01) ==
LOC: RADMAMWWP 13:17
PROVIDERS: ATTEND Family Medicine
DX: Z12.31 Encounter for screening mammogram for malignant neoplasm of breast (principal); Z85.3 Personal history of malignant neoplasm of breast; Z78.0 Asymptomatic menopausal state; Z90.11 Acquired absence of right breast and nipple; Z98.82 Breast implant status
CPT/HCPCS: 77067

== ENCOUNTER → 2024-06-29 | Outpatient (CLI) | payer MEDICARE ==
--- NOTE | 2024-06-29 17:57 | CT ---
EXAMINATION TYPE: CT lumbar spine wo con DATE OF EXAM: 06/29/2024 5:34 PM COMPARISON: 04/19/2011. CLINICAL INDICATION: Female, 58 years old with history of M47.816 SPONDYLOSIS,LUMBAR;M48.061 SPINAL S TENOSIS; PHH, Lower back pain x2+ years. TECHNIQUE: Multiple axial images were obtained from the midportion of T11 through the sacroiliac jo nts. Soft tissue and bone windows in coronal and sagittal planes were obtained and reviewed. Contrast used: mL of , (None, if empty). Oral contrast used: (None, if empty). CT DLP: 920 mGycm, Automated exposure control for dose reduction was used. FINDINGS: Alignment: There are 5 lumbar type vertebral bodies within normal alignment. Bone: Mild multilevel disc degeneration changes with osteophyte formation facet joint arthropathy. Discs: T12-L1: No spinal canal or neural foraminal stenosis is identified. L1-L2: No spinal canal or neural foraminal stenosis is identified. L2-L3: Facet joint arthropathy and disc bulging without significant spinal canal stenosis or neural f oraminal stenosis. L3-L4: Facet joint arthropathy and disc bulging result in mild spinal canal stenosis and mild bilater al neural foraminal stenosis. L4-L5: Facet joint arthropathy and disc bulging result in moderate spinal canal stenosis and mild seferino ateral neural foraminal stenosis. L5-S1: No spinal canal or neural foraminal stenosis is identified. Other: None IMPRESSION: 1. No evidence for spinal fracture. 2. Moderate L4-L5 spinal canal stenosis secondary disc bulge and facet joint arthropathy. 3. Mild degeneration changes throughout spine without evidence for significant neural foraminal steno sis. [facility], , 06/29/2024 5:55 PM
== END | disposition home or self-care (01) ==
LOC: RADCTMAIN 16:32
PROVIDERS: ATTEND Orthopaedic Surgery
CPT/HCPCS: 72131

== ENCOUNTER → 2024-10-30 | Outpatient (CLI) | payer MEDICARE | END | disposition home or self-care (01) | LOC: LABPAT 09:46 | PROVIDERS: ATTEND Orthopaedic Surgery | DX: Z01.812 Encounter for preprocedural laboratory examination (principal); M43.16 Spondylolisthesis, lumbar region; Z22.322 Carrier or suspected carrier of Methicillin resistant Staphylococcus aureus | CPT/HCPCS: 86850; 86900; 86901; 87070 ==

== ENCOUNTER 2024-11-03 05:32 | Day surgery (SDC) | payer MEDICARE ==
[2024-10-29 11:09] VITALS: BMI 29.7
[~2024-11-03 05:32] MED LIST changes: -DEXAMETHASONE SOD PHOSPHATE 10 MG/ML 1 ML VIAL IV ONE; +GABAPENTIN 300 MG CAP PO PRN; -HEPARIN SODIUM,PORCINE 5,000 UNIT/ML 1 ML VIAL SQ ONE; -LACTATED RINGERS 1,000 ML IV SCH; -LIDOCAINE 1% 20 ML VIAL (10MG/ML) FOR IV START INTRADERMA PRN; -ONDANSETRON 4 MG/2 ML VIAL IVP ONE; +ONDANSETRON 4 MG/2 ML VIAL IVP PRN; -SCOPOLAMINE 1.5MG/72HR PATCH TRANSDERM ONE; +TRANEXAMIC 1,000 MG/100ML-NACL 1,000 MG in SALINE 1 100ML.BAG IVPB PRN
[2024-11-03] MEDS ORDERED: LIDOCAINE 1% (10MG/ML) FOR IV START INTRADERMA PRN (05:58)
--- NOTE | 2024-11-03 06:46 | P.HPOR ---
History of Present Illness H&P Date: 11/03/24 .T:Title: RECHECK H1 [facility] [address] [place] [address]| PROVIDER: RIO MEDELLIN DO CLINICAL SUMMARY: 58-year-old female presenting for lumbar spine recheck and CT scan review with one-year history of constant aching lumbar pain (VAS 9/10). Pain is exacerbated by positional changes, bending, and twisting. Patient demonstrates right heel drop but denies radicular symptoms or numbness/tingling in lower extremities. Conservative management including physical therapy, home exercises, and injections has failed to provide adequate relief. Current medications include Midvale without symptom resolution. Imaging reveals L4-5 Grade I spondylolisthesis with instability, severe facet arthrosis, and multilevel disc herniations from L2-S1, most severe at L4-5 with moderate to severe bilateral neuroforaminal stenosis and canal stenosis. Physical exam notable for paralumbar tenderness, restricted lumbar ROM, and inability to perform single-leg stance or deep squat. Given progressive symptoms and imaging findings, surgical intervention with L4-5 minimally invasive posterolateral and interbody fusion is recommended. DEMOGRAPHICS: Age: 58 year Height: 5'6" Weight: 182 lbs BP:/ BMI: 29.38 kg/m2 Occupation: Disabled CC: lumbar pain VAS: 9 HISTORY: Ms. Howell presents to the office today, 08/05/24, for a recheck of her lumbar spine and CT scan results. Patient continues to describe a constant aching lumbar pain that has been ongoing over the past year. Patient denies any injury to indicate onset of symptoms. Patient denies any radiculopathy or numbness or tingling into the lower extremities. Patient states her symptoms are exacerbated with changing position from sitting to standing, bending, or twisting. Patient also notes heel drop on the right. She is currently taking Midvale without resolution of her symptoms. Patient ambulates independently. * Patient denies any f/c/sob/cp, perineal numbness or tingling, bowel, or bladder incontinence/retention. * The patients past social, medical, family, surgical history, as well as review of systems, have been reviewed. Please refer to the History and Physical form that has been scanned into our electronic medical record system. * 16 points review of systems completed and as stated in HPI, all other systems reviewed are negative. PAST TREATMENTS: PAST IMAGING: -YES, CT scan, MRI, xray - TRAUMA RELATED: -NO - WORK RELATED: -NO - PT IN LAST 6 MONTHS: -YES - PHYSICIAN DIRECTED HOME EXERCISE PROGRAM: -YES - ACTIVITY MODIFICATION: -YES - MEDICATIONS: -YES, Midvale - ALTERNATIVE INTERVENTIONS (CHIROPRACTIC, ACCUPUNCTURE, MASSAGE, RICE): -YES - BRACING: -NO - INJECTIONS (MICHEAL, TF, RFA): -YES - MEDICAL HISTORY: Past Medical History: REVIEWED STATED IN CHART Past Surgical History: REVIEWED STATED IN CHART Social History: REVIEWED STATED IN CHART SMOKING: Never smoker ETOH: None SUBSTANCES: None Family History: REVIEWED STATED IN CHART P1 Current Medications: Rx: cyclobenzaprine 5 mg tablet Ref: 0 Instructions: take 1 tablet (5 mg) by oral route 3 times per day as needed for muscle spasm Rx: gabapentin 400 mg capsule Ref: 0 Instructions: take 1 capsule (400 mg) by oral route 3 times per day Rx: ibuprofen 800 mg tablet Ref: 0 Instructions: take 1 tablet (800 mg) by oral route once camacho Rx: Topamax 50 mg tablet Ref: 0 Instructions: take 1 tablet (50 mg) by oral route 2 times per day Rx: Zocor 20 mg tablet Ref: 0 Instructions: take 1 tablet (20 mg) by oral route once daily in the evening Rx: Zoloft 100 mg tablet Ref: 0 Instructions: take 1 tablet (100 mg) by oral route once daily Rx: Zoloft 50 mg tablet Ref: 0 Instructions: take 1 tablet (50 mg) by oral route once daily P1 PHYSICAL EXAM: General: AOX3, NAD, Well hydrate, well nourished, in no acute distress HEENT: No lumps or masses Extremities: No color changes, no pooling INTEGUMENT: Appearance: Normal color and turgor Surgical Incisions: Hairy Patches: ABSENT Dorsal Skin Dimples: Normal [employer] spots: ABSENT PALPATION: TTP Midline: NO Paracervical: NO Parathoracic: NO Paralumbar: YES SIJ TESTING (Silke's, FABER4, Compression, Distraction, Thigh Thrust, Hip Thrust): TESTED * POSITIVE FINDINGS: NEGATIVE FINDINGS: Silke's, FABER4, Compression, Distraction, Thigh Thrust, Hip Thrust POSTURAL BALANCE: Coronal: BALANCED Sagittal: BALANCED Shoulder height: LEVEL Pelvic Girdle: LEVEL ROM AND APPEARANCE: Neck: UNRESTRICTED Lumbar: RESTRICTED Shoulders: Symmetrical Hips: Symmetrical Knees: Symmetrical Hands: Symmetrical Feet: Symmetrical VASCULAR STATUS: PALPABLE PULSES B/L UE AND LE 2/4 RAD/ULNAR/DP/PT Edema: NONE NEUROLOGICAL EXAMINATION: Mental Status: Awake, alert, fully oriented with normal attention, concentration, and memory. Fluent appropriate speech. CRANIAL NERVES: I: Olfactory not assessed. II: Visual acuity normal, no visual field deficit noted with confrontation. III, IV: Normal pupillary reflexes & intact extraocular movements without nystagmus. V, : Intact symmetrical facial sensation. VII: Intact symmetrical facial motor movement: Hearing intact. IX, X: Intact gag, swallow, & normal voice. XI: Sternocleidomastoid, trapezius function intact. XII: Tongue midline with normal movements. TENSIONING: * L'HERMITTE'S SIG:NEG SPURLUNG'S SIGN:NEG UPPER EXTREMITY TENSIONING SIGNS: NEG CUBITAL TUNNEL COMPRESSION:NEG TINELS AT WRIST:NEG STRAIGH LEG RAISE:POS RIGHT CONTRALATERAL STRAIGHT LEG RAISE: NEG MOTOR EXAM (0-5/5, NT) Muscle appearance: Symmetrical, without signs of atrophy or dystrophy Heel drop on right UPPER EXTREMITY RIGHT LEFT Shoulder Abduction 5 5 Biceps 5 5 Triceps 5 5 Wrist Extension 5 5 Hand Intrinsics 5 5 Medical Billing Representative 5 5 LOWER EXTREMITY RIGHT LEFT Hip Flexion 5 5 Knee Extension 5 5 Knee Flexion 5 5 Dorsiflexion 4- 5 Plantarflexion 4+ 5 EHL 4 5 FHL 4 5 REFLEXES (0-4/2, NT): RIGHT LEFT Bicep 2 2 Brachioradialis 2 2 Triceps 2 2 Patellar 2 2 Achilles 2 2 PATHOLOGICAL REFLEXES: RIGHT LEFT LARSON'S ABSENT ABSENT CLONUS ABSENT ABSENT BABINSKI ABSENT ABSENT RECTAL TONE: INTACT/NT SENSATION (0-4, NT): Sensation intact to LT and Pain * C5-T1 distribution BUE * L2-S2 distribution BLE *Exceptions below* DERMATOMAL DEFICIT/RADICULAR PATTERN: L4-5 RIGHT GAIT AND FUNCTIONAL EVALUATION: AMBULATORY AID NONE ROMBERG'S TEST INTACT HAND AND FINGER DEXTERITY INTACT YES DYSDIADOCHOKINESIA EXAM NEG B/L YES TOE/HEEL WALK INTACT WITH GOOD BALANCE YES SQUAT AND RISE W/O ASSISTANCE TO 60 DEG KNEE FLEXION NO SINGLE LEG STANCE NOT ABLE TRENDE[place]G NEG IMAGING: XRay Lumbar Multiview (AP, Lateral, Flexion, Extension) with AP pelvis; 5 view[facility]aken at [facility] on 06/24/24: Mild to moderate spondylitic and degenerative changes L3-S1 with straightening of the normal lordosis. There is multilevel diminished disc height at these lev els. Vertebral body heights are preserved. No acute osseous abnormalities. Pelvis: The visualized sacrum and iliac wings are within normal limits. [facility]ine: Impression: 1. Straightening of the normal lordosis consistent with strain in the appropriate clinical circumstance. 2. L2-3: 1 to 2 mm broad-based disc herniation effaces the ventral surface of the thecal sac without evidence of central canal or limiting foraminal stenosis. 3. L3-4: 5 to 6 mm broad-based disc herniation knee with focal disc extrusion traveling 6 mm in a cranial direction effaces the ventral surface of the thecal sac resulting in mild right neuroforaminal encroachment and right exiting L3 nerve impingement in conjunction with facet arthrosis. 4. L4-5: Posterior annular tear is seen within the intervertebral disc. 7 mm broad-based disc herniation effaces the ventral surface of the thecal sac resulting in moderate to severe bilateral neuroforaminal encroachment and bilateral exiting L4 nerve impingement in conjunction with facet arthrosis. Moderate to severe canal stenosis is seen. 5. L5-S1: Posterior annular tear is seen within the intervertebral disc. 3 to 4 mm broad-based disc herniation effaces the ventral surface of the thecal sac resulting in moderate right neuroforaminal encroachment and right exiting L5 nerve impingement in conjunction with facet arthrosis. The left neuroforamen is adequately patent. Mild canal stenosis is seen. CT Date: 06/29/24 Location: [facility] Region: LUMBAR Contrast: N IMAGES ARE REVIEWED WITH THE PATIENT IN OFFICE AND DEMONSTRATE THE FOLLOWING: FINDINGS: These demonstrate L4-5 grade I spondylolisthesis which is unstable and partially reduced on this supine film. There is severe facet arthrosis, pars elongation as well as arthropathy contributing to the slip as well as degenerative changes and disc collapse that contribute. There is facet arthrosis, ligamental hypertrophy as well which is contbuting to the overall spondylotic and stenotic features of the level. Modic changes noted. IMPRESSION: It was my pleasure to have seen and examined Chanel. I reviewed the patient's clinical syndrome, physical findings, and imaging studies during the appointment today. It is my impression that the patient has a diagnosis of. 1.L4-5 Grade 1 spondylolisthesis 2.L4-5 spondylosis with stenosis 3.Right lower extremity radiculopathy 4. Right lower extremity weakness PLAN: DISCUSSION: -I have discussed with the patient their clinical signs and symptoms, imaging, and treatment options. We have discussed risks, benefits, potential outcomes and natural course as pertains top their issues. The patient understands and would like to proceed as follows below: SURGICAL RECOMMENDATION -L4-5 MINIMALLY INVASIVE POSTEROLATERAL AND INTERBODY FUSION APPROACH: RIGHT IMPLANTS: BIA EVEREST SCREWS, GLOBUS SABLE CAGES DURATION: 1.5 HR OUTPT Spine Surgery Risk Review Ms. Howell is presenting for evaluation of cervical spine. It was my pleasure to have seen and examined Ms. Howell. In our visit today we have had a chance to go over subjective complaints, physical examination findings and treatments including the natural course history without intervention and various interventional options. The patients imaging demonstrates: XRay Lumbar Multiview (AP, Lateral, Flexion, Extension) with AP pelvis; 5 viewstaken at [facility] on 06/24/24: Mild to moderate spondylitic and degenerative changes L3-S1 with straightening of the normal lordosis. There is multilevel diminished disc height at these levels. Vertebral body heights are preserved. No acute osseous abnormalities. Pelvis: The visualized sacrum and iliac wings are within normal limits. [facility] Lumbar[facility]ine: Impression: 1. Straightening of the normal lordosis consistent with strain in the appropriate clinical circumstance. 2. L2-3: 1 to 2 mm broad-based disc herniation effaces the ventral surface of the thecal sac without evidence of central canal or limiting foraminal stenosis. 3. L3-4: 5 to 6 mm broad-based disc herniation knee with focal disc extrusion traveling 6 mm in a cranial direction effaces the ventral surface of the thecal sac resulting in mild right neuroforaminal encroachment and right exiting L3 nerve impingement in conjunction with facet arthrosis. 4. L4-5: Posterior annular tear is seen within the intervertebral disc. 7 mm broad-based disc herniation effaces the ventral surface of the thecal sac resulting in moderate to severe bilateral neuroforaminal encroachment and bilateral exiting L4 nerve impingement in conjunction with facet arthrosis. Moderate to severe canal stenosis is seen. 5. L5-S1: Posterior annular tear is seen within the intervertebral disc. 3 to 4 mm broad-based disc herniation effaces the ventral surface of the thecal sac resulting in moderate right neuroforaminal encroachment and right exiting L5 nerve impingement in conjunction with facet arthrosis. The left neuroforamen is adequately patent. Mild canal stenosis is seen. CT Date: 06/29/24 Location: [facility] Region: LUMBAR Contrast: N IMAGES ARE REVIEWED WITH THE PATIENT IN OFFICE AND DEMONSTRATE THE FOLLOWING: FINDINGS: On physical exam, Ms. Howell demonstrates: Patient continues to describe a constant aching lumbar pain that has been ongoing over the past year. Patient denies any injury to indicate onset of symptoms. Patient denies any radiculopathy or numbness or tingling into the lower extremities. Patient states her symptoms are exacerbated with changing position from sitting to standing, bending, or twisting. Patient also notes heel drop on the right. She is currently takign Midvale without resolution of her symptoms. Patient ambulates independently. I have explained to the patient that as their condition progresses it will cause further neurological deficits and eventual paralysis. Based on the patients imaging, physical exam, and the rapid progression and disabling nature of their symptoms, at this time I recommend surgery in the form of a: L4-5 Right ID PLIBF . I discussed the risk and benefits of this procedure at length with Ms. Howell. The patient [significant other] agreed to considered pursuing the procedure abovementioned. Prior to surgery, she should follow up with her PCP (Cardio, ID, IM etc) for clearance. Questions were invited and answered, and the patient wishes to proceed as outlined below. Currently, I am recommendin.L4-5 MINIMALLY INVASIVE POSTEROLATERAL AND INTERBODY FUSION 2.Follow up with PCP for surgical clearance 3.Review of surgical risks and benefits as well as an educational packet on the proposed surgical procedure. Risks: All surgical procedures come with inherent risks, including those related to positioning, anesthesia, intraoperative findings, and postoperative complications. It is important to understand that surgery does not come with any guarantee of a successful outcome as complications and adverse events are always possible. The patient was given a handout in office today discussing the surgical procedure and risks associated with the intervention, both of which were discussed with the patient. These risks include but are not limited to the following: * Experiencing same, different or even worse symptoms in back, neck, arms, or legs compared to before surgery. Requiring further surgery or other forms of treatment presently or at some time in the future at same or other levels of the intended spine surgery. On an extreme but fortunately relatively rare basis severe complication such as blindness, stroke, heart attack, temporary and/or permanent nerve injury, paralysis, coma, or may occur, sometimes without known explanation. Surgical complications may include but are not limited to risk of infection, fluid accumulation in the surgical dissection site, including a seroma or hematoma, that requires additional surgery, wound drainage, bleeding, new numbness or weakness, vision changes/loss, spinal fluid leakage, non-healing and/or infected incision, headaches, difficulty or inability to swallow, hoarseness, hemopneumothorax, pneumothorax, impotence, retrograde ejaculation, vaginal dryness; injury to nerves, spinal cord, blood vessels, lymphatics or other vital organs (i.e., bowel injury, injury to the great vessels); heterotopic bone formation; complications related to the hardware such as screws, rods, cages including misplaced hardware, device failure, instrumentation at the wrong spine level, hardware fracture/breakage, or hardware loosening; vertebral failure of the spinal column above or below the newly placed hardware; retained surgical instrumentations or devices and the need for further surgery. * Medical risks of the planned spine surgery include but are not limited to generalized Infections to the whole body or local areas outside of the surgica l site (sepsis), heart attack, bleeding, anaphylaxis, meningitis, seizure, epilepsy, hearing loss, burn wiggins, laceration of the head or other areas of the body, bruising, hypersensitivity of the skin, bladder over distension; allergic reaction; shoulder injury related to positioning; fat, blood and air clots to other areas of the body like heart, lungs, brain; failure of internal organs such as lungs, kidneys, liver and excessive bleeding. If blood transfusions are necessary, note that transfusions may cause intolerance reactions such as anaphylaxis or other complex reactions. Despite best efforts, the results of spine surgery might not heal in terms of bone, soft tissues such as skin, fascia, ligaments, and joints. Additionally, in order to achieve best possible results, spine surgery may be carried out beyond the initially planned levels and involve decompression, fusion including insertion of hardware at levels other than the original intended area of surgical interest change some portions of the procedure in order to ensure the best possible outcomes. With spine surgery and spinal fusion, there are different off label uses of instrumentation (devices, implants and hardware) as well as biological substances (bone morphogenic proteins, demineralized bone matrix) as well as using extra bone from allograft sources (i.e. cadaver bone) or autograft (iliac crest bone, ribs, or the spine itself). The patient has been given information about these practices and their inherent risks and benefits. [facility] is an educational center that serves as a training facility for neurosurgical and orthopedic NURSING INSTRUCTOR and Nursing students. Physician assistants are medically trained surgical providers who function in the outpatient, inpatient, and operating room setting under the direct supervision of the attending surgeon. [facility] has multiple operating rooms with single and overlapping rooms running daily. They currently function under the required guidelines as produced by the [facility] [employer] Committee with regards to the overlapping rooms and will continue to comply with changes to this policy as they occur. The requirements include and are complied with as follows: (1) the critical portions of the overlapping rooms will not occur at the same time, (2) the attending physician will be physically present during the critical portions of the procedure and immediately available during the entire case, and (3) a back-up attending is designated should the primary attending not be immediately available. The patient has had a chance to review all the listed information, has been given print outs detailing this information, and has had all his/her questions answered to their satisfaction. It was my pleasure to have seen and examined Ms. Howell. In our visit today we have had a chance to go over my understanding of our patient's current condition, the natural course history without intervention and various interventional options. Questions were invited and answered, and the patient wishes to proceed as outlined above. I have seen and examined the patient for 25 minutes and we have spent more than 50% of the time in repeat and detailed coun seling about the patient's condition, its natural course history with out and as much as can be predicted with surgery and re-review of various surgical treatment options. In conclusion, Ms. Howell requested we proceed with the above suggested surgery and are willing to accept risks and limitations of the suggested surgery as nature of the disease process and our best attempts at treatment for the condition. Medical Necessity: Ms. Howell is a 58-year-old female with severe, constant lumbar pain (VAS 9/10) that has failed to respond to comprehensive conservative management including physical therapy, home exercises, activity modification, and pain management injections. Her symptoms are significantly impacting her daily activities, particularly with positional changes, bending, and twisting movements. The patient demonstrates right heel drop, indicating neurological deterioration. Imaging studies reveal unstable Grade I spondylolisthesis at L4-5 with severe facet arthrosis, pars elongation, and significant disc herniation causing moderate to severe bilateral neuroforaminal stenosis and canal stenosis. Additional findings include multilevel disc herniations from L2-S1 with nerve root impingement. Despite medication management with Midvale, gabapentin, and muscle relaxants, the patient continues to experience debilitating symptoms. Surgical Rationale: Surgical intervention with L4-5 minimally invasive posterolateral and interbody fusion is medically necessary due to the presence of progressive neurological deficit (right heel drop), documented spinal instability (Grade I spondylolisthesis with mobility on imaging), and severe stenosis causing nerve root compression. The radiographic findings correlate with the patient's clinical presentation and demonstrate clear structural pathology that has been refractory to conservative measures. Without surgical intervention, the patient is at risk for further neurological deterioration and potential paralysis due to the unstable nature of her condition. The minimally invasive approach is appropriate given the focused pathology at L4-5, and the addition of interbody fusion is warranted due to the presence of instability and severe facet arthrosis. The goals of surgery are to decompress the neural elements, stabilize the unstable segment, and prevent further neurological deterioration, thereby improving the patient's functional status and quality of life. FOLLOW UP: POST OP PLAN AT NEXT VISIT: RECKECK PATIENT EDUCATION: Medications Reviewed: YES In our visit today Ms. Howell and I have had a chance to go over my understanding of the patient's current condition, the natural course history without intervention and various interventional options. Questions were invited and answered, and the patient wishes to proceed as outlined above. I will be sure to keep you updated after Ms. Howell returns here for further f ollow-up. Thank you again for your referral. Please do not hesitate to contact me if you have any further questions. Signed and authenticated by: Rio Christianson [facility] [address] [place] [address] . This message is confidential, intended only for the named recipient(s) and may contain information that is privileged or exempt from disclosure under applicable law. If you are not the intended recipient(s), you are notified that the dissemination, distribution or copying of this information is prohibited. If you received this message in error, please notify the sender then delete this message. # SIGNED BY Rio Medellin (GOO)08/13/2024 08:23AM Past Medical History Past Medical History: Cancer, Fibromyalgia, Hyperlipidemia Additional Past Medical History / Comment(s): breast cancer 2005 History of Any Multi-Drug Resistant Organisms: None Reported Past Surgical History: Breast Surgery, Hysterectomy Additional Past Surgical History / Comment(s): mastectomy right breast 2005. chemotherapy/radation. RT LEG SKIN GRAFT, Past Anesthesia/Blood Transfusion Reactions: No Reported Reaction Smoking Status: Current every day smoker - Past Family History Mother Family Medical History: Cancer Additional Family Medical History / Comment(s): stomach cancer Father Family Medical History: Cancer Additional Family Medical History / Comment(s): throat cancer Medications and Allergies Home Medications Medication Instructions Recorded Confirmed Type Cholecalciferol [Vitamin D3] 2,000 unit PO QAM 01/24/18 11/03/24 History HYDROcodone/APAP 7.5-325MG [Midvale 1 tab PO TID PRN 01/24/18 11/03/24 History 7.5-325] Topiramate [Topamax] 50 mg PO BID 01/24/18 11/03/24 History Sertraline HCl [Zoloft] 100 mg PO QAM 05/08/19 11/03/24 History Ferrous Sulfate [Feosol] 325 mg PO DAILY 10/29/24 11/03/24 History Gabapentin [Neurontin] 400 mg PO TID 10/29/24 11/03/24 History Simvastatin [Zocor] 40 mg PO HS 10/29/24 11/03/24 History Allergies Allergy/AdvReac Type Severity Reaction Status Date / Time morphine Allergy Rash/Hives Verified 11/03/24 06:18 Penicillins Allergy Nausea & Verified 11/03/24 06:18 Vomiting Physical Examination Osteopathic Statement: *. No significant issues noted on an osteopathic structural exam other than those noted in the History and Physical/Consult.
[2024-11-03] MEDS: IV FLUID CONTINUATION 1,000 ML IV ONE ×3 (06:54→10:57)
[2024-11-03] MEDS ORDERED: MIDAZOLAM 2 MG/2 ML VIAL IV PRN (07:00)
[2024-11-03] MEDS ORDERED: fentaNYL (PF) 50 MCG/ML 2 ML AMP IVP PRN (07:00)
[2024-11-03] MEDS: LACTATED RINGERS 1,000 ML IV SCH (07:02)
[2024-11-03] MEDS: ONDANSETRON 4 MG/2 ML VIAL IVP ONE (07:03)
[2024-11-03] MEDS: ACETAMINOPHEN TAB 500 MG TAB PO PRN (07:03)
[2024-11-03] MEDS: DEXAMETHASONE SOD PHOSPHATE 4 MG/ML 1 ML VIAL IV ONE (07:03)
[2024-11-03] MEDS ORDERED: MIDAZOLAM 2 MG/2 ML VIAL ONE (07:25)
[2024-11-03] MEDS ORDERED: TRANEXAMIC 1,000 MG/100ML-NACL PREMIX BAG ONE (07:25)
[2024-11-03] MEDS ORDERED: ePHEDrine 50 MG/ML 1 ML VIAL ONE (07:25)
[2024-11-03] MEDS ORDERED: PROPOFOL 10 MG/ML 20 ML VIAL IV ONE (07:25)
[2024-11-03] MEDS ORDERED: fentaNYL (PF) 50 MCG/ML 2 ML AMP ONE (07:25)
[2024-11-03] MEDS ORDERED: SUCCINYLCHOLINE CHLORIDE 200 MG/10 ML VIAL IV ONE (07:25)
[2024-11-03] MEDS ORDERED: KETAMINE HCL IN 0.9 % NACL 50 MG/5 ML SYRINGE ONE (07:25)
[2024-11-03] MEDS ORDERED: GLYCOPYRROLATE 0.2 MG/ML 2 ML VIAL ONE (07:25)
[2024-11-03] MEDS ORDERED: WATER FOR INJECTION, STERILE 10 ML VIAL IV ONE (07:25)
[2024-11-03] MEDS ORDERED: NEOSTIGMINE 1 MG/ML 10 ML VIAL ONE (07:25)
[2024-11-03] MEDS ORDERED: ROCURONIUM 10 MG/ML (5 ML VIAL) IV ONE (07:25)
[2024-11-03] MEDS ORDERED: HYDROmorphone (PF) 1 MG/ML ONE (07:25)
[2024-11-03] MEDS ORDERED: LIDOCAINE 1% INJ 10MG/ML (20 ML MDV) ONE (07:25)
[2024-11-03] MEDS: THROMBIN (BOVINE) 5,000 UNIT VIAL TOPICAL ONE (08:35)
[2024-11-03] MEDS: BUPIVACAINE (PF) 0.25% 30 ML VIAL SQ ONE ×2 (09:03)
[2024-11-03] MEDS: LIDOCAINE 2%-EPI 1:100,000 20 ML VIAL SQ ONE (09:28)
--- NOTE | 2024-11-03 09:38 | P.OP ---
Date of Procedure: 11/03/24 Preoperative Diagnosis: 1.L4-5 Grade 1 spondylolisthesis 2.L4-5 spondylosis with stenosis 3.Right lower extremity radiculopathy 4. Right lower extremity weakness Postoperative Diagnosis: 1.L4-5 Grade 1 spondylolisthesis 2.L4-5 spondylosis with stenosis 3.Right lower extremity radiculopathy 4. Right lower extremity weakness Procedure(s) Performed: 1. L4-5 POSTEROLATERAL AND INTERBODY FUSION 2. L4-5 POSTEROLATERAL INSTRUMENTATION 3. L4-5 LAMINECTOMY, FACETECTOMY AND FORAMINOTOMY FOR COMPLETE NEURAL DECOMPRESSION, DEFORMITY CORRECTION AND CAGE PLACEMENT 4. L4-5 INSERTION OF BIOMECHANICAL DEVICE, CAGE, x1 5. USE OF [employer] NAVIGATION FOR SCREW PLACEMENT USE OF IONM ALL SCREWS TESTING > 10 mA USE OF IO MICROSCOPE Implants: -BIA EVEREST RODS AND SCREWS -GLOBUS SABLE CAGE 8 DEG, LONG, 9-16 -AUTOGRAFT, ALLOGRAFT, ALLOCELL AF, CONTOUR Anesthesia: GETA Surgeon: Mert Jones Automotive Design Drafter #1: Marky Flowers (WAS PRESENT AND ASSISTED WITH ALL ASPECTS OF THE CASE FROM POSITION TO DRESSING PLACEMENT) Estimated Blood Loss (ml): 75 IV fluids (ml): 1,200 Urine output (ml): 250 Pathology: none sent Condition: stable Disposition: PACU Indications for Procedure: 58-year-old female presenting for lumbar spine recheck and CT scan review with one-year history of constant aching lumbar pain (VAS 9/10). Pain is exacerbated by positional changes, bending, and twisting. Patient demonstrates right heel drop but denies radicular symptoms or numbness/tingling in lower extremities. Conservative management including physical therapy, home exercises, and injections has failed to provide adequate relief. Current medications include [place] without symptom resolution. Imaging reveals L4-5 Grade I spondylolisthesis with instability, severe facet arthrosis, and multilevel disc herniations from L2-S1, most severe at L4-5 with moderate to severe bilateral neuroforaminal stenosis and canal stenosis. Physical exam notable for paralumbar tenderness, restricted lumbar ROM, and inability to perform single-leg stance or deep squat. Given progressive symptoms and imaging findings, surgical intervention with L4-5 minimally invasive posterolateral and interbody fusion is recommended. Description of Procedure: L4-L5 MIS TLIF AFSHIN The patient was seen and examined in the preoperative area. All preoperative protocols were followed. Informed consent was obtained, risks and benefits of the procedure were discussed at length. Risks including bleeding infection damage to the surrounding tissue and risk of reoperation were discussed with the patient. Risk of anesthesia up to and including was discussed with the patient. These are outlined in the risk review. They were willing to accept these risks and all the risks of surgery. The patient was given a weight-based dose of antibiotics in the form of 2 g Ancef. The patient was seen and evaluated by the anesthesia team who deemed them fit for surgery. The site was marked, the patient was willing to proceed with the procedure. The patient was transferred to the operative suite by the Department of anesthesia. They were then drifted off to sleep by the department anesthesia and GETA was performed. The patient tolerated this well. Once confirmation of lines and ventilation the patient was transferred to a prone Florencio table very carefully. All bony prominences including wrists, elbows, axilla, chest, hips, and thighs, and feet were padded very well. Special attention was paid to the genitalia, and these were padded accordingly. SCDs were placed on bilateral lower extremities and were connected. Arms were well padded and placed on arm boards up and out in the 90/90 position. Once in position, again we confirmed good ventilation capabilities and that lines were running appropriately. The patients Lumbar spine was then exposed. 1010s were placed outlining the incision site. Standard alcohol was used to clean the incision site and allowed to dry. C-arm was used to needle localize the pedicles at L4-5 and bio-magdalena the patient and confirm level for incision which was marked with a skin marker. Operative briefing was performed with all teams and everyone in agreement to proceed. The patient was then prepped and draped in a normal sterile fashion. Timeout was then performed, and all parties agreed with the procedure to be performed. Skin nicks made and pins placed in the PSIS on the right for the Caterna tracker. 3D Zheim spin was then registered and confirmed to be accurate. Navigated jamshidi and drill-guide were then used to target pedicles bilaterally at L4 and L5. Once accessed, wires were placed in their void. This was repeated at L5 bilaterally. Skin incision was then made along these wires and a perfect scalpel was used over the wire to create a path and measure screw length. Screws were then placed over wires on the contralateral side. Once the screw was at the back of the body wire was removed. The screws were confirmed to be in good position on AP and lateral. We then tested screws and they all tested above 20 mA. Attention was then turned to interbody fusion at L4-5. Tubular retractor system was placed at the interspace of L4-5 using a biplanar c arm and navigation. Once in position and dilated up to 26mm tube it was locked to the bed and confirmed in good position. Microscope was then brought in for visualization. Limited myomectomy was performed and laminectomy, complete facetectomy and foraminotomy performed at L4-5 using high speed lucius and Kerrison rongeur. The ligamentum was removed and the dural sac decompressed. Exiting and traversing roots visualized and decompressed. Neural elements were then protected, and disc space accessed with an osteotome. Sequential shaving then done under lateral imaging and complete discectomy performed using crispin, pituitary and curettes. Once good bleeding endplates accomplished and good height latter day with trials, a combination of autograft, allograft and synthetic placed anterior in the disc space. The cage was then selected and impacted into place under lateral imaging. The cage was then expanded restoring height, lordosis and alignment. The cage was backfilled with bone graft through a funnel. The foreign exchange student coordinator was removed and the area inspected. Good cage placement, stable cage and no injuries. Area was irrigated copiously, and meticulous hemostasis achieved. The tubular retractor was then removed under direct visualization. Screws were then selected and placed over the previously placed wires on the ips ilateral side. This was done in the fashion described above. Screws were then tested, and all tested above 20 mA. Shells were then placed on the tabs. Efe length was then measured, and rods selected. They were then placed through the MIS tabs, subfascial and locked into L5 bilateral and sequentially reduced into L4 for listhesis reduction. These were then locked into place with set screws and finally tightened. Efe holders removed and images taken showing good placement of rods, good lordosis and latter day of height. Tabs were broken off. Wounds were then copiously irrigated with NSS. Lucius used for TP decortication and mixture of MagnatOs, allograft and autograft packed posterolateral. Fascia was then closed with 0 Vircyl. Deep subq closed with 0 Vicryl. Superficial subq closed with 2-0 Vicryl and skin with bryan. Wound edges approximated very well. Wound was then cleaned with alcohol and dried. Wounds dressed adaptic, 4x4, abd and tape. The patient was then transferred off the table back to their hospital bed a- traumatically. They were extubated by the department of anesthesia. They were then transferred to PACU in stable condition having tolerated the procedure with no complications. NOTES: -very reactive when decompressing, no EMG or sustained trains -Large cysts in facets
[2024-11-03] MEDS ORDERED: HYDROcodone/APAP 5-325MG 1 EACH TAB PO PRN (09:52)
[2024-11-03] MEDS ORDERED: ONDANSETRON 4 MG/2 ML VIAL IVP PRN (09:52)
[2024-11-03] MEDS ORDERED: SENNOSIDES-DOCUSATE SODIUM 1 EACH TAB PO PRN (09:52)
[2024-11-03] MEDS ORDERED: HYDROmorphone 0.5 MG/0.5 ML SYRINGE IVP PRN (09:52)
[2024-11-03] MEDS ORDERED: MAGNESIUM HYDROXIDE 2,400 MG/30 ML CUP PO PRN (09:52)
--- NOTE | 2024-11-03 09:58 | FL ---
EXAMINATION TYPE: FL guidance operating room, XR lumbar spine 2 or 3V DATE OF EXAM: 11/03/2024 9:45 AM COMPARISON: Pre Operative Images if available both CT/MRI or plain film CLINICAL INDICATION: Female, 58 years old with history of L4-L5 Fusion; TECHNIQUE: FL guidance operating room, XR lumbar spine 2 or 3V, multiple fluoroscopic images provided for procedure. DAP: 684.11 mGym2 Gycm2 uGym2 cGycm2 or equivalent. FINDINGS: Fluoroscopic images during internal fixation/arthroplasty demonstrate hardware in appropriate positio n. Hardware appears intact. No immediate complication identified. IMPRESSION: 1. No evidence for intraoperative complication. 2. Please see the operative/procedural note for further details. [facility], , 11/03/2024 9:56 AM
[2024-11-03] MEDS: HYDROmorphone 0.5 MG/0.5 ML SYRINGE IVP PRN (10:16)
[2024-11-03] MEDS: CYCLOBENZAPRINE 5 MG TAB PO PRN (13:03)
[2024-11-03] MEDS: ACETAMINOPHEN TAB 325 MG TAB PO SCH (13:03)
[2024-11-03] MEDS: HYDROcodone/APAP 10-325MG 1 EACH TAB PO PRN (13:03)
--- NOTE | 2024-11-03 14:40 | CT ---
EXAMINATION TYPE: CT lumbar spine wo con DATE OF EXAM: 11/03/2024 2:13 PM COMPARISON: 06/21/2024 CLINICAL INDICATION: Female, 58 years old with history of s/p L4-L5 MIS PLIF; PHH, S/P L4-L5 MIS PLIF TECHNIQUE: Unenhanced CT of the lumbar spine was performed. Bone and soft tissue window settings are submitted as well as coronal and sagittal reconstructions. CT DLP: 1034.[address] CTDI: mGy Automated exposure control for dose reduction was used. FINDINGS: There is an interval interbody and posterior metallic fusion with laminectomy on the right at the L4- 5 level. Secondary to thickening ligamentum flavum, there is persistent moderate L4-5 spinal stenosis . There is mild spinal stenosis at the L3-4 level. There is no bony neural foraminal stenosis. The vertebral segments are normal in height and alignment there is no fracture or subluxation. The L1 -2, L2-3, L3-4 and L5-S1 disc spaces are well preserved. IMPRESSION: 1. Post surgical changes at the L4-5 level. 2. Persistent moderate spinal stenosis at L4-5 secondary to ligamentum flavum thickening. 3. Mild spinal stenosis at the L3-4 level. 4. no lumbar disc herniation. 5. No significant degenerative disc disease [facility], , 11/03/2024 2:37 PM
--- NOTE | 2024-11-03 15:09 | P.CONS ---
History of Present Illness - Reason for Consult Consult date: 11/03/24 - History of Present Illness History of present illness: 58-year-old female with past medical history significant for chronic back pain with lumbar stenosis was following orthopedic spine as outpatient. Patient had 1 year history of constant aching lower back pain, exacerbated by movements, position changes, bending and twisting, also had right heel drop. Patient tried physical therapy home exercises and injections without much improvement. Patient underwent L4-5 laminectomy, facetectomy, foraminotomy and fusion. Interim medicine consulted for medical management. Patient denied any fever, chills, cough, sore throat, chest pain, palpitations, nausea vomiting diarrhea constipation abdominal pain dysuria urgency frequency. Patient is afebrile, heart rate 65, respiratory rate 16, blood pressure 110/74, saturating 99% on room air. Assessment and plan: Lumbar stenosis with radiculopathy: Status postL4-5 laminectomy, facetectomy, foraminotomy and fusion: Management per primary team Perioperative antibiotics, pain control and DVT prophylaxis per primary team Monitor with neurocheShotos Bladder/bowel protocol Fall precaution- PT/OT consult. Hyperlipidemia: Continue simvastatin Depression: Continue Zoloft DVT prophylaxis Per orthopedics. Monitor vital signs and labs Labs and medication were reviewed. Continue same treatment. Further recommendations as per clinical course of the patient PHYSICAL EXAMINATION: GENERAL: The patient is A&O x3, NAD HEENT: EOMI, Sclerae anicteric, Moist Mucous membranes Neck: Supple, Non tender, No JVD PULMONARY: Equal breath souds B/L, No wheezing, No crackles. CARDIOVASCULAR: S1, S2 present. No murmurs, rubs, or gallops. ABDOMEN: Soft, nontender, nondistended, normoactive bowel sounds. No guarding or rebound tenderness. MUSCULOSKELETAL: No edema, No cyanosis. No clubbing. Normal ROM. Intact peripheral pulses. NEUROLOGICAL: CN 2-12 grossly intact. No FND REVIEW OF SYSTEMS: CONSTITUTIONAL: No fever, no malaise, no fatigue. HEENT: No recent visual problems or hearing problems. Denied any sore throat. CARDIOVASCULAR: No chest pain, orthopnea, PND, no palpitations, no syncope. PULMONARY: No shortness of breath, no cough, no hemoptysis. GASTROINTESTINAL: No diarrhea, no nausea, no vomiting, no abdominal pain. NEUROLOGICAL: No headaches, no weakness, no numbness. HEMATOLOGICAL: Denies any bleeding or petechiae. GENITOURINARY: Denies any burning micturition, frequency, or urgency. MUSCULOSKELETAL/RHEUMATOLOGICAL: Denies any joint pain, swelling, or any muscle pain. ENDOCRINE: Denies any polyuria or polydipsia. The rest of the 14-point review of systems is negative. Dictation was produced using [employer] dictation software. please excuse any grammatical, word or spelling errors. Past Medical History Past Medical History: Cancer, Fibromyalgia, Hyperlipidemia Additional Past Medical History / Comment(s): breast cancer 2005 History of Any Multi-Drug Resistant Organisms: None Reported Past Surgical History: Breast Surgery, Hysterectomy Additional Past Surgical History / Comment(s): mastectomy right breast 2005. chemotherapy/radation. RT LEG SKIN GRAFT, Past Anesthesia/Blood Transfusion Reactions: No Reported Reaction Past Psychological History: Anxiety Smoking Status: Current every day smoker Past Alcohol Use History: None Reported Additional Past Alcohol Use History / Comment(s): quit and restarted currently smokes 5 cig/day Past Drug Use History: None Reported - Past Family History Mother Family Medical History: Cancer Additional Family Medical History / Comment(s): stomach cancer Father Family Medical History: Cancer Additional Family Medical History / Comment(s): throat cancer Medications and Allergies Home Medications Medication Instructions Recorded Confirmed Type Cholecalciferol [Vitamin D3] 2,000 unit PO QAM 01/24/18 11/03/24 History HYDROcodone/APAP 7.5-325MG [[place] 1 tab PO TID PRN 01/24/18 11/03/24 History 7.5-325] Topiramate [Topamax] 50 mg PO BID 01/24/18 11/03/24 History Sertraline HCl [Zoloft] 100 mg PO QAM 05/08/19 11/03/24 History Ferrous Sulfate [Feosol] 325 mg PO DAILY 10/29/24 11/03/24 History Gabapentin [Neurontin] 400 mg PO TID 10/29/24 11/03/24 History Simvastatin [Zocor] 40 mg PO HS 10/29/24 11/03/24 History Allergies Allergy/AdvReac Type Severity Reaction Status Date / Time morphine Allergy Rash/Hives Verified 11/03/24 06:18 Penicillins Allergy Nausea & Verified 11/03/24 06:18 Vomiting Physical Exam Vitals: Vital Signs Temp Pulse Resp BP Pulse Ox 11/03/24 14:00 98.0 F 65 16 110/74 99 11/03/24 12:00 86 16 113/57 93 L 11/03/24 11:30 76 16 130/58 93 L 11/03/24 11:15 78 16 128/78 93 L 11/03/24 11:00 81 16 117/80 93 L 11/03/24 10:45 74 16 136/80 97 11/03/24 10:30 77 16 125/65 97 11/03/24 10:15 78 16 119/74 96 11/03/24 10:04 97.1 F L 86 16 116/71 96 11/03/24 06:33 97.3 F L 56 L 14 125/58 94 L Intake and Output 11/03/24 11/03/24 11/03/24 06:59 14:59 22:59 Intake Total 200 1850 Output Total 75 Balance 200 1775 Intake: IV 200 1850 Output: Estimated Blood Loss 75 Other: Weight 86.183 kg
[2024-11-03] MEDS: GABAPENTIN 400 MG CAP PO SCH (16:16)
[2024-11-03] MEDS: HYDROmorphone 1 MG/ML 1 ML SYRINGE IVP PRN (16:21)
[2024-11-03] MEDS: ATORVASTATIN 20 MG TAB PO SCH (20:42)
[2024-11-03] MEDS: TOPIRAMATE 25 MG TAB PO SCH (20:42)
[2024-11-04] MEDS: SERTRALINE 100 MG TAB PO SCH (07:36)
[2024-11-04] MEDS: FERROUS SULFATE 325 MG TAB PO SCH (07:37)
[2024-11-04] MEDS: CHOLECALCIFEROL 25 MCG (1000 IU) TABLET PO SCH (07:37)
[2024-11-04 08:24] VITALS: BP 107/72; PULSE 62; RESP 16; TEMP 98.8
--- NOTE | 2024-11-04 08:43 | P.PN ---
Subjective Progress Note Date: 11/04/24 Principal diagnosis: 1.L4-5 Grade 1 spondylolisthesis 2.L4-5 spondylosis with stenosis 3.Right lower extremity radiculopathy 4. Right lower extremity weakness Patient seen and examined this morning. Patient is resting comfortably in bed. She does report that her pain is managed on current regimen. Informed patient that physical therapy will begin to work with her this morning. Patient verbalized understanding. Ny catheter to be discontinued this morning. Nell ent reports that she feels comfortable with discharge home later today. Discharge instructions have been discussed. No acute concerns. Objective - Vital Signs Vital signs: Vital Signs Temp 98.8 F 11/04/24 07:10 Pulse 62 11/04/24 07:10 Resp 16 11/04/24 07:10 BP 107/72 11/04/24 07:10 Pulse Ox 97 11/04/24 07:10 FiO2 Intake & Output 11/03/24 11/04/24 11/04/24 18:59 06:59 18:59 Intake Total 2410 Output Total 1275 1000 350 Balance 1135 -1000 -350 Weight 86.183 kg Intake: IV 1850 Intake, IV Titration 200 Amount Lactated Ringers 1,000 ml 100 @ 20 mls/hr IV .Q24H RONEL Rx#:[id number] ceFAZolin 2 gm In Sodium 100 Chloride 0.9% 50 ml @ 100 mls/hr IVPB Q8HR [facility] Rx# :[id number] Oral 360 Output: Urine 1200 1000 350 Uretheral (Ny) 350 Estimated Blood Loss 75 Other: Voiding Method Indwelling Catheter - Exam Physical Examination General: The patient is awake and alert, in no acute distress. Skin: Skin is warm and dry with no obvious rashes or lesions. Surgical incision to the lumbar spine, dressing is clean dry and intact. Eye: Pupils are equal, round and reactive to light, extra-ocular movements are intact; there is normal conjunctiva bilaterally. Neck: The neck is supple, there is no tenderness and ROM intact. Respiratory: Respirations are non-labored. Gastrointestinal: Soft, non-distended, non-tender abdomen. Back: There is no tenderness to palpation in the midline, paralumbar, parathoracic or buttocks region. There is no obvious deformity. Musculoskeletal: ROM limited secondary to pain and stiffness from surgical procedure. Right: Shoulder abduction 5/5, elbow flexors 5/5, wrist dorsiflexors 5/5. finger abductor 5/5, beam machine operator 5/5, hip flexor 5/5, knee flexor 5/5, ankle dorsiflexor 5/5, ankle plantarflexion 5/5 and extensor hallucis 5/5 Left: Shoulder abduction 5/5, elbow flexors 5/5, wrist dorsiflexors 5/5. finger abductor 5/5, beam machine operator 5/5, hip flexor 5/5, knee flexor 5/5, ankle dorsiflexor 5/5, ankle plantarflexion 5/5 and extensor hallucis 5/5. Neurological: CN 2-12 intact. There are no obvious motor or sensory deficits. Movement and coordination equal and intact. Sensory exam to light touch intact C5-T1 and intact from L2-S1. Reflexes 2/4 in bilateral upper and lower extremities. Negative Hoffmans, babinski, and clonus signs. Psychiatric: Cooperative, appropriate mood & affect, normal judgment. Assessment and Plan Assessment: Postop day 1: L4-L5 minimally invasive TLIF Plan: -Appreciate consultant technology and team management. -Activity: Ambulate QID, OOB all meals, up and about, limit lifting bending twisting to less than 5 lbs. Use walker or cane if needed for stability. -Daily PT/OT, increase ambulation strength and balance. -Pain control: Adequate at this time -Meds: reviewed -GI ppx: senna, Miralax -DC ny this am. -DVT PPX: Aspirin 81mg daily -Hygiene: Maintain incision clean and dry. May change dressing as needed, please document in notes if performed. Meticulous cleaning after BMs away from the incision site -Encourage IS 10x/hr -Dispo: Discharge home later today. *I reviewed and discussed this case with my attending Dr. Jones, whom has reviewed this chart and films and is in agreement with assessment and plan of care as outlined above. I have personally seen and examined the patient, performed the documentation and the assessment and plan as written. Number of minutes spent on the visit: 20m.
--- NOTE | 2024-11-04 09:00 | P.DS ---
Providers Date of admission: 11/03/24 Expected date of discharge: 11/04/24 Attending physician: Mert Jones DO Consults: 11/03/24 09:52 Consult Physician Routine Consulting Provider: Yari Wall Reason/Comments: medical management s/p L4-L5 MIS PLIF Do you want consulting provider notified?: Yes Primary care physician: [facility] Course: Hospital Course: The patient was evaluated preoperatively and found to have the diagnosis of lumbar spondylosis with stenosis. They underwent appropriate preoperative care and were willing to undergo the intended procedure. They underwent a successful L4-L5 minimally invasive TLIF, were recovered appropriately and sent to the floor. While on the floor they worked with physical therapy, occupational therapy and nursing to enhance their recovery experience. Their pain was well controlled through their stay and they were started on appropriate medications, DVT ppx modalities, activity and dietary needs. Daily labs were monitored closely, and transfusions were only used when necessary. Medicine as well as other consulting services have made their input and have helped with our team approach and multidisciplinary care. PT milestones have been met and passed and they have made the recommendation of home with home care for this patient and treating providers agree with this care path. The patient will be discharged home with appropriate medications, instructions and follow-up information and in stable condition. Patient Condition at Discharge: Good Plan - Discharge Summary Discharge Rx Participant: Yes New Discharge Prescriptions: New Sulfamethox-Tmp 800-160Mg [Bactrim DS 800-160 mg] 1 tab PO Q12HR #10 tab Cyclobenzaprine [Flexeril] 5 mg PO TID PRN #40 tablet PRN Reason: Muscle Spasm HYDROcodone/APAP 10-325MG [[place] 10-325] 1 tab PO Q4-6H PRN #42 tab PRN Reason: Pain Sennosides/Docusate Sodium [Senna Plus 8.6-50 mg Tablet] 2 each PO DAILY PRN #20 tab PRN Reason: Constipation Naproxen [Naprosyn] 500 mg PO BID #28 tablet No Action Topiramate [Topamax] 50 mg PO BID Cholecalciferol [Vitamin D3] 2,000 unit PO QAM HYDROcodone/APAP 7.5-325MG [[place] 7.5-325] 1 tab PO TID PRN PRN Reason: Pain Sertraline HCl [Zoloft] 100 mg PO QAM Ferrous Sulfate [Feosol] 325 mg PO DAILY Simvastatin [Zocor] 40 mg PO HS Gabapentin [Neurontin] 400 mg PO TID Discharge Medication List Cholecalciferol [Vitamin D3] 2,000 unit PO QAM 01/24/18 [History] HYDROcodone/APAP 7.5-325MG [Assaria 7.5-325] 1 tab PO TID PRN 01/24/18 [History] Topiramate [Topamax] 50 mg PO BID 01/24/18 [History] Sertraline HCl [Zoloft] 100 mg PO QAM 05/08/19 [History] Ferrous Sulfate [Feosol] 325 mg PO DAILY 10/29/24 [History] Gabapentin [Neurontin] 400 mg PO TID 10/29/24 [History] Simvastatin [Zocor] 40 mg PO HS 10/29/24 [History] Cyclobenzaprine [Flexeril] 5 mg PO TID PRN #40 tablet 11/04/24 [Rx] HYDROcodone/APAP 10-325MG [[place] 10-325] 1 tab PO Q4-6H PRN #42 tab 11/04/24 [Rx] Naproxen [Naprosyn] 500 mg PO BID #28 tablet 11/04/24 [Rx] Sennosides/Docusate Sodium [Senna Plus 8.6-50 mg Tablet] 2 each PO DAILY PRN #20 tab 11/04/24 [Rx] Sulfamethox-Tmp 800-160Mg [Bactrim DS 800-160 mg] 1 tab PO Q12HR #10 tab 11/04/24 [Rx] Follow up Appointment(s)/Referral(s): Mert Jones DO [Doctor of Osteopathic Medicine] - 2 Weeks Activity/Diet/Wound Care/Special Instructions: Spine Discharge and Recovery Instructions Date of Surgery: 11/03/2024 Diagnosis: L4-L5 spondylosis with stenosis Procedure: L4-L5 right minimally invasive PLIF Medications: See medication list All medication refills should be obtained through your primary care doctor or your clinic spine surgeon. Please discuss prescription refills at your follow up appointment. Do not call the hospital for medication refills. Activity: Encourage ambulation with assist of walker, Up and about 6-8x daily PT/OT daily work on balance, strength and mobility Up in chair with all meals Shower daily Brace: Use brace when up and about, do not wear in bed or shower Dressing: Leave your dressing in place for a total of 3 days post operatively. Then you may remove your dressing and leave open to air. Keep the area clean and if not able to keep area clean, then cover with sterile gauze and tape. Showering: You may shower 3 days after your procedure allowing soap and water to run over incision. Do not scrub. Do not soak. Blot dry. Follow up: Please confirm a follow up appointment with your surgeon 2 weeks post operatively. Please make an appointment to follow up with your PCP in 1-2 weeks after surgery for evaluation '3 phase, 3-week plan' POST OP WEEKS 1-3 1. Lifting/carrying/pushing/pulling limited to less than 5 pounds. 2. Do not sit for longer than 15 minutes at one time. Get up and walk around. Prolonged sitting is NOT advised. If you lay down, see if you can tolerate laying down on you front (belly side) 3. Walk for periods of 15 minutes = 1 mile but no longer; do it multiple times times each day. 4. Ice your low back after activity. POST OP WEEKS 3-6 1. Lifting limited to less than 20 pounds. 2. Do not sit for longer than 30 minutes at a time. Frequently change positions. Use a sit-to stand workstation or take frequent breaks from sitting if you have returned to work. 3. Walk for 30 minutes each day. If possible, do these three or more times a day POST OP WEEKS 6+ At your 6-week appointment we will give you a physical therapy referral to focus on a core stabilization and strengthening program. You should also work on leg & buttock strengthening, hamstring & quadriceps stretching, and continue a low impact aerobic activity program such as swimming, walking, or riding a stationary bicycle. During the initial 6 weeks after your surgery, you are at the highest risk of re-injuring your spine. You should generally avoid BLT's (bending, lifting and twisting combination motions) and follow the above guidelines to reduce the chance of reinjury. You can anticipate post op appointments in our office at approximately 3 weeks and 6 weeks after your surgery. INCISION CARE: If your incision is not draining you do NOT need to cover it with a dressing. Keep your incision clean, dry and intact. In most cases, we apply skin glue, bryan or sutures to the incision at the time of surgery. This will be like a crust or have the appearance of a scab and will fall off in time on its own. The stitches or bryan need to be removed at 3 weeks post op appointment. You may begin to shower 3 days after surgery (this allows the glue to reyes well). However, please avoid scrubbing the incision site or peeling off any of the skin glue. This will ensure optimal healing of your incision. Also, during this time avoid soaking the incision area in water - this includes swimming pools, hot tubs or baths. No ointments, lotions or oils on the incision until your surgeon allows. Leave bryan, sutures or glue in place. Neurological dysfunction that comes on suddenly can also be a sign of a stroke. Below some common symptoms of a stroke are listed: B - balance difficulty such as sudden onset walking or leaning to one side - NEW E - eye problem such as sudden double vision or trouble seeing on one side - NEW F - Facial weakness or numbness on one side - NEW A - Arm or leg weakness or numbness on one side - NEW S - Slurred speech or difficulty with word finding - NEW T - Time is BRAIN! Call 911 as soon as you recognize these symptoms Diet: Consume a regular diet rich in vegetables and lean protein such as chicken or fish. You should consume in a ratio of approximately 20% fats|40% carbohydrates|40%protein. Vegetables, sweet potatoes, brown rice or quinoa are examples of good carbohydrates. Chips, white bread, cookies and sweets/sugar are examples of bad carbohydrates. Limit your bad carbs, go wild with good carbs. 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 (1) Get Active. Physical activity can help people lose weight, control high blood pressure and cholesterol, feel emotionally better, and sleep better. (2) Control Cholesterol. Avoid a diet high in saturated fat, trans fat, & cholesterol. Limit whole milk & cream, ice cream, butter, egg yolks, processed meats (like sausage and hot dogs), and fatty meats. Choose healthy foods that are low in saturated fat, trans fat and cholesterol which include: Fruits and vegetables, fiber rich grain products (like whole grain pasta and brown rice), lean meat such as chicken, fish, nuts, seeds, and legumes. (3) Eat Better. Eat small portions. Shop at the grocery with a list and do not stray from it. Tips for a healthy diet include: Limit sodium intake to less than 1500mg daily, avoid prepackaged, processed, and fast foods, choose a diet rich in fruits, vegetables, and whole grain, high fiber foods, and limit saturated & cholesterol in your diet. (4) Manage Blood Pressure. If you have high blood pressure, you should have a cuff at home so that you can check your blood pressure regularly. Be sure you have a good cuff. An arm one is generally better than a wrist one. Bring the cuff to a doctor's appointment to validate that the measurements that your cuff are taking are accurate. Take your blood pressure twice daily when you are sitting down and relaxing. Record the numbers in a log and bring this log with you to your doctors' appointments. (5) Lose Weight if your BMI is above 25. A healthy BMI is between 19-25. To calculate Your BMI, you may use a Standard BMI Calculator on the NIH BMI website: <www.nhlbi.nih.gov/guidelines/obesity/BMI/bmicalc.htm>. Weigh oneself daily. If you are overweight, set a goal to lose weight. A pound a week loss if needed is a good target. (6) Reduce Blood Sugar. Limit foods and liquids with "added sugars." (Added sugars include sucrose, fructose, glucose, maltose, dextrose, high fructose corn syrup, corn syrup, concentrated fruit juice and honey). (7) Stop Smoking. If you smoke, quitting smoking is one of the best things that you can do for your health. Smoking increases your risk of heart attack, stroke, and peripheral vascular disease, which is a build-up of plaque in your arteries. Please discard all the cigarettes and lighters in your house. Have a plan for what you will do when you have the urge to smoke. Direct and second- hand smoke shortens your life as well as the lives of your family, friends and others around you. For your health and the health of those around you, please consider quitting! Proper Bending Body Mechanics: Maintain a wide stance with one foot slightly in front of the other. Keep your back straight. Bend utilizing the strength in your hips and knees. Do not bend at the waist. Maintain the lifted object at your waist-level close to your body. Avoid lifting weight that causes immediately pain or pain anywhere in the body afterwards. Smoking/Nicotine If there was ever one thing that you could do to increase your overall health, decrease your risk of cardiovascular problems by about 39% the second you make the choice, it is to STOP SMOKING. Your body's most instant gratification is the second you stop smoking. We have all heard the studies, read the articles but it is true, smoking is extremely bad for your overall health, and moreover it is detrimental to your bone health. Nicotine, IN ANY FORM, kills bone cells, prevents your body from healing fractures, and significantly prolongs healing after surgery. In spine surgery specifically, it increases your risk of not healing your bones to create a fusion and increases your risk of having a revision surgery due to this up to 60%. I know it is hard. I know it feels impossible. But there are ways. Take control of your life. We are here to help you through it. And when you are ready, ask us and we can direct you to help if you desire. Use the START Plan to Quit Smoking (please visit the Helpguide.org website listed below for more information): S = Set a quit date. Choose a date within the next 2 weeks, so you have enough time to prepare without losing your motivation to quit. If you mainly smoke at work, quit on the weekend, so you have a few days to adjust to the change. T = Tell family, friends, and co-workers that you plan to quit. Let your friends and family in on your plan to quit smoking and tell them you need their support and encouragement to stop. Look for a quit bello who wants to stop smoking as well. You can help each other get through the rough times. A = Anticipate and plan for the challenges you'll face while quitting. Most people who begin smoking again do so within the first 3 months. You can help yourself make it through by preparing ahead for common challenges, such as nicotine withdrawal and cigarette cravings. R = Remove cigarettes and other tobacco products from your home, car, and work. Throw away all your cigarettes (no emergency pack!), lighters, ashtrays, and matches. Wash your clothes and freshen up anything that smells like smoke. Shampoo your car, clean your drapes and carpet, and steam your furniture. T = Talk to your doctor about getting help to quit. Your doctor can prescribe medication to help with withdrawal and suggest other alternatives. If you can't see a doctor, you can get many products over the counter at your local pharmacy or grocery store, including the nicotine patch, nicotine lozenges, and nicotine gum. Resources for Quitting Smoking: <https://www.[place].gov/documents/[facility]/Quit_Tobacco_Resources_for_patients_313 480_7.pdf> Supplementation: Take recommended dosages of Vitamin D and Calcium to help fortify your bones and help them to heal. See your health maintenance packet for dosages and recommended levels. DVT/VTE prophylaxis: You will be given compression stockings from the hospital. Wear these daily for the first two weeks after surgery. You may take them off at night. You may be prescribed a medication to help thin your blood. Take this as directed. If you are not prescribed this medication, early and frequent ambulation has been shown to be the best prophylaxis to deep vein thrombosis and sequelae related to this event. Discharge Disposition: HOME WITH HOME HEALTH SERVICES
[2024-11-04 09:32] LABS: Basophils # (A) 0.03 X 10*3/uL (0.00-0.10); Basophils % (A) 0.4 %; Eosinophils # (A) 0.01 X 10*3/uL (0.04-0.35); Eosinophils % (A) 0.1 %; HCT 37.1 % (37.2-46.3); HGB 11.9 g/dL (12.0-15.0); Lymphocytes # (A) 1.71 X 10*3/uL (0.90-5.00); Lymphocytes % (A) 22.3 %; MCH 27.6 pg (27.0-32.0); MCHC 32.1 g/dL (32.0-37.0); MCV 86.1 FL (80.0-97.0); Mean Platelet Volume 10.6 FL (9.5-12.2); Monocytes % (A) 7.8 %; NRBC Per 100 WBC 0 X 10*3/uL (0.00-0.01); Neutrophils # (A) 5.29 X 10*3/uL (1.80-7.70); Platelet Count 189 X 10*3/uL (140-440); RBC 4.31 X 10*6/uL (4.10-5.20); RDW 13.7 % (11.5-14.5); WBC 7.67 X 10*3/uL (4.50-10.00)
[2024-11-04 10:50] LABS: Blood Urea Nitrogen 7.8 mg/dL (9.0-27.0); Chloride 108 mmol/L (96-109); Glucose 121 mg/dL (70-110); Potassium 3.7 mmol/L (3.5-5.5); Sodium 141 mmol/L (135-145)
[2024-11-04 10:51] LABS: Calcium 8.6 mg/dL (8.7-10.3); Carbon Dioxide 22.7 mmol/L (21.6-31.8)
--- NOTE | 2024-11-04 14:26 | P.PN ---
Subjective Interval History: 58-year-old female with past medical history significant for chronic back pain with lumbar stenosis was following orthopedic spine as outpatient. Patient had 1 year history of constant aching lower back pain, exacerbated by movements, position changes, bending and twisting, also had right heel drop. Patient tried physical therapy home exercises and injections without much improvement. Patient underwent L4-5 laminectomy, facetectomy, foraminotomy and fusion. Interim medicine consulted for medical management. Patient denied any fever, chills, cough, sore throat, chest pain, palpitations, nausea vomiting diarrhea constipation abdominal pain dysuria urgency frequency. Patient is afebrile, heart rate 65, respiratory rate 16, blood pressure 110/74, saturating 99% on room air. Assessment and plan: Lumbar stenosis with radiculopathy: Status postL4-5 laminectomy, facetectomy, foraminotomy and fusion: Management per primary team Perioperative antibiotics, pain control and DVT prophylaxis per primary team Monitor with neurochecks Bladder/bowel protocol Hyperlipidemia: Continue simvastatin Depression: Continue Zoloft DVT prophylaxis Per orthopedics. PHYSICAL EXAMINATION: GENERAL: The patient is A&O x3, NAD HEENT: EOMI, Sclerae anicteric, Moist Mucous membranes Neck: Supple, Non tender, No JVD PULMONARY: Equal breath souds B/L, No wheezing, No crackles. CARDIOVASCULAR: S1, S2 present. No murmurs, rubs, or gallops. ABDOMEN: Soft, nontender, nondistended, normoactive bowel sounds. No guarding or rebound tenderness. MUSCULOSKELETAL: No edema, No cyanosis. No clubbing. Normal ROM. Intact peripheral pulses. NEUROLOGICAL: CN 2-12 grossly intact. No FND REVIEW OF SYSTEMS: CONSTITUTIONAL: No fever or chills. CARDIOVASCULAR: No chest pain, palpitations or syncope. PULMONARY: No shortness of breath, no cough, sore throat. GASTROINTESTINAL: No nausea, vomiting, diarrhea, abdominal pain. : No Dysuria, urgency, frequency. Extremities: No edema. NEUROLOGICAL: No headaches, no weakness, or numbness Dictation was produced using [employer] software. please excuse any grammatical, word or spelling errors. Objective - Vital Signs Vital signs: Vital Signs Temp 98.8 F 11/04/24 07:10 Pulse 62 11/04/24 07:10 Resp 16 11/04/24 07:10 BP 107/72 11/04/24 07:10 Pulse Ox 97 11/04/24 07:10 FiO2 Intake & Output 11/03/24 11/04/24 11/04/24 18:59 06:59 18:59 Intake Total 2410 250 Output Total 1275 1000 350 Balance 1135 -1000 -100 Weight 86.183 kg Intake: IV 1850 Intake, IV Titration 200 Amount Lactated Ringers 1,000 ml 100 @ 20 mls/hr IV .Q24H RONEL Rx#:[id number] ceFAZolin 2 gm In Sodium 100 Chloride 0.9% 50 ml @ 100 mls/hr IVPB Q8HR RONEL Rx# :[id number] Oral 360 250 Output: Urine 1200 1000 350 Uretheral ([place]) 350 Estimated Blood Loss 75 Other: Voiding Method Indwelling Catheter # Voids 2 - Labs CBC & Chem 7: 11/04/24 06:21 11/04/24 06:21 Labs: Abnormal Lab Results - Last 24 Hours (Table) 11/04/24 11/04/24 Range/Units 06:21 06:21 Hgb 11.9 L (12.0-15.0) g/dL Hct 37.1 L (37.2-46.3) % Eosinophils # 0.01 L (0.04-0.35) X 10*3/uL BUN 7.8 L (9.0-27.0) mg/dL Glucose 121 H (70-110) mg/dL Calcium 8.6 L (8.7-10.3) mg/dL
== END 2024-11-04 12:21 | disposition home health service (06) ==
LOC: OR 05:32 → 4SSUR 09:45 → OR 11-04 12:21
PROVIDERS: ATTEND Orthopaedic Surgery
DX: M43.16 Spondylolisthesis, lumbar region (principal); M48.061 Spinal stenosis, lumbar region without neurogenic claudication; M47.26 Other spondylosis with radiculopathy, lumbar region; G89.29 Other chronic pain; E78.5 Hyperlipidemia, unspecified; Z85.3 Personal history of malignant neoplasm of breast; M79.7 Fibromyalgia; F17.210 Nicotine dependence, cigarettes, uncomplicated; Z88.0 Allergy status to penicillin
CPT/HCPCS: 97161; 80048; 85025; 72100; 72131; 22633; C1713; C1762; J2250; J0330; J1100; J2710; J0690 ×2; J2405; J2003; J3010; J1171 ×3; J2704; J0665; J1596